=== PATIENT | male | born 1950 | race Caucasian/White ===

== ENCOUNTER 2019-08-30 08:45 | Inpatient (IN) ==
--- NOTE | 2019-08-28 09:15 | Anesthesiology Consultation ---
Date of Service August 28, 2019 Assessment & Plan (1) Encounter for pre-operative examination: COVID assessment: Travel/history reviewed. The patient is low risk. Routine preop COVID testing was performed 08/22/19, and the results are still pending. Cardiology note (per 03/2019 stress test report): Based upon nuclear imaging findings, there is inferior wall ischemia, no change from previous nuclear scan and known occluded RCA (compared to 10/13/16 stress test, patient had cardiac cath 12/2016). "Study shows stability. It is comparable to previous studies... Cardiac clearance for this patient is low to moderate cardiac risk." Chart Review Chart Review: Acceptable Risk for Surgery and Patient NOT seen in Pre Admission Testing Consults Requested none History Surgery Operation Date: 08/30/19 10:50 Proposed Procedures p L3-S1 Decompression and Fusion, Spinal Cord Monitoring - Albaro Csah DO Height/Weight Height: 5 ft 6 in Weight: 103.419 kg Allergies Allergy/AdvReac Type Severity Reaction Status Date / Time No Known Allergies Allergy Verified 08/21/19 11:14 Medications Home Medications Medication Instructions Recorded Confirmed Last Taken aspirin [Aspirin Low Dose] 81 mg PO QPM 05/08/19 08/21/19 Unknown atorvastatin 20 mg PO QAM 05/08/19 08/21/19 Unknown bisoprolol fumarate 5 mg PO QPM 05/08/19 08/21/19 Unknown cholecalciferol (vitamin D3) 25 mcg PO QAM 05/08/19 08/21/19 Unknown [Vitamin D3] clopidogrel 75 mg PO QAM 05/08/19 08/21/19 Unknown gabapentin 300 mg PO TID 05/08/19 08/21/19 Unknown isosorbide mononitrate 30 mg PO QAM 05/08/19 08/21/19 Unknown lisinopril 20 mg PO QAM 05/08/19 08/21/19 Unknown meloxicam 15 mg PO QAM 05/08/19 08/21/19 Unknown metformin 500 mg PO QAM 05/08/19 08/21/19 Unknown omeprazole magnesium [Prilosec OTC] 20 mg PO QAM 05/08/19 08/21/19 Unknown potassium gluconate 595 mg PO QPM 05/08/19 08/21/19 Unknown prednisone 2.5 mg PO QPM 05/08/19 08/21/19 Unknown venlafaxine 150 mg PO QAM 05/08/19 08/21/19 Unknown Testosterone 1 dose INJ DIRECTED 05/16/19 08/21/19 Unknown amlodipine 10 mg PO QAM 05/16/19 08/21/19 Unknown pioglitazone [Actos] 45 mg PO DAILY 05/16/19 08/21/19 Unknown Past Medical History Medical History Anxiety CAD (coronary artery disease) stents x3 (2017)- on plavix Depression Diabetes mellitus, type 2 NIDDM Fibromyalgia GERD (gastroesophageal reflux disease) controlled Hearing deficit Hx of melanoma of skin Hx TIA/stroke w/o resid 2017 Hyperlipidemia Hypertension Low testosterone Obesity Polycythemia Receives occasional phlebotomy/last phlebotomy 6 months ago (follows with hematology/Dr. Hernandez) Rheumatoid arthritis chronic prednisone 2.5mg daily* Spinal stenosis Past Family History Family History Mother Family history of diabetes mellitus Family/Other Family history of diabetes mellitus Past Surgical History Surgical History History of colonoscopy Hx of cardiac catheterization 2017- stents x3 Hx of cholecystectomy Hx of melanoma excision BACK Hx of meniscectomy of right knee Social History Smoking Status: Former smoker Do You Dip or Chew Tobacco: No Smoking End Date: 22 years ago Hx Alcohol Use: Yes alcohol intake frequency: holidays/special occasions only Hx Substance Use: No substance use type: does not use Testing Laboratory Results Laboratory Tests 05/16/19 05/16/19 12:47 12:47 WBC 13.13 H Hgb 15.0 Plt Count 363 PT 10.7 INR 1.0 APTT 25.7 08/16/19 WBC 11.6 Hgb 15.2 platelet 267 08/09/19 Na 140 K 4.1 Cl 103 CO2 28 BUN 13 Cr 0.73 glucose 127 Electrocardiogram Date: 08/25/18 SR @ 68 bpm Chest X-Ray Date: 05/16/19 Cardiac silhouette is upper limits of normal in size. Mild right hemidiaphragmatic elevation. Minimal interstitial coarsening of the lung bases. There is no pneumothorax, pleural effusion or overt pulmonary edema. Degenerative changes of the shoulders and spine. IMPRESSION: No acute process. Echocardiogram Date: 03/18/19 EF 55-60%. Dilated ascending aorta 4.2cm. No RWMA. PASP 15-20mmhg. No significant valvular disease. Indeterminate diastolic dysfunction. Stress Test Date: 03/25/19 Type: nuclear Based upon EKG criteria, this test is negative. Based upon nuclear imaging findings, there is inferior wall ischemia, no change from previous nuclear scan and known occluded RCA (compared to 10/13/16 stress test, patient had cardiac cath 12/2016). "Study shows stability. It is comparable to previous studies... Cardiac clearance for this patient is low to moderate cardiac risk" per report. Cardiac Catheterization Date: 12/29/16 Nonobstructive CAD of the left coronary system. Hemodynamically insignificant IFR of the LAD and second OM branch. Severe disease of the RCA. RCA is a small vessel, less then 2mm in diameter. Medical therapy recommended. Cervical Spine Date: 05/16/19 Decreased mobility with significantly decreased extension. No dynamic subluxation. No evidence of abnormal widening of the predental interval. Degenerative changes at C4-5 and C5-6 with osseous spinal canal narrowing. No radiographic evidence of fracture.
[~2019-08-30 08:45] MED LIST: ACETAMINOPHEN 500 MG TAB PO SCH; CEFAZOLIN 2000MG 2,000 MG/15 ML SYR IV SCH; CeleBREX 200 MG CAP PO SCH; GABAPENTIN 300 MG CAP PO SCH; LR 15ML/HR IV SCH
[2019-08-30] MEDS ORDERED: fentaNYL citrate 100 MCG/2 ML VIAL ONE (09:22)
[2019-08-30] MEDS ORDERED: MIDAZOLAM HCL 1 MG/ML 2ML VIAL ONE (09:22)
--- NOTE | 2019-08-30 10:20 | History & Physical Bridge Note ---
Date of Service August 30, 2019 History & Physical Bridge Note I have examined the patient, reviewed the History & Physical and in the interval since the performance of the History & Physical I have noted the following changes of clinical significance: no changes noted
--- NOTE | 2019-08-30 10:21 | History & Physical Report ---
Date of Service August 30, 2019 Assessment & Plan (1) Neurogenic claudication due to lumbar spinal stenosis: L3-S1 decompression fusion Present on Admission?: Yes History of Present Illness Chief Complaint: Back and bilateral leg pain Primary Care Provider: José Miguel Lee This is a 69-year-old male that presents with worsening back and bilateral leg pain. After failing extensive course of nonoperative care is here for surgical intervention. Allergies Allergy/AdvReac Type Severity Reaction Status Date / Time No Known Allergies Allergy Verified 08/21/19 11:14 Home Medications Home Medications Medication Instructions Recorded Confirmed Type aspirin [Aspirin Low Dose] 81 mg PO QPM 05/08/19 08/30/19 History atorvastatin 20 mg PO QAM 05/08/19 08/30/19 History bisoprolol fumarate 5 mg PO QPM 05/08/19 08/30/19 History cholecalciferol (vitamin D3) 25 mcg PO QAM 05/08/19 08/30/19 History [Vitamin D3] clopidogrel 75 mg PO QAM 05/08/19 08/30/19 History gabapentin 300 mg PO TID 05/08/19 08/30/19 History isosorbide mononitrate 30 mg PO QAM 05/08/19 08/30/19 History lisinopril 20 mg PO QAM 05/08/19 08/21/19 History meloxicam 15 mg PO QAM 05/08/19 08/21/19 History metformin 500 mg PO QAM 05/08/19 08/21/19 History omeprazole magnesium [Prilosec OTC] 20 mg PO QAM 05/08/19 08/21/19 History potassium gluconate 595 mg PO QPM 05/08/19 08/21/19 History prednisone 2.5 mg PO QPM 05/08/19 08/21/19 History venlafaxine 150 mg PO QAM 05/08/19 08/21/19 History Testosterone 1 dose INJ DIRECTED 05/16/19 08/21/19 History amlodipine 10 mg PO QAM 05/16/19 08/30/19 History pioglitazone [Actos] 45 mg PO DAILY 05/16/19 08/21/19 History Past Med/Surg History Medical History Anxiety CAD (coronary artery disease) stents x3 (2016)- on plavix Depression Diabetes mellitus, type 2 NIDDM Fibromyalgia GERD (gastroesophageal reflux disease) controlled Hearing deficit Hx of melanoma of skin Hx TIA/stroke w/o resid 2017 Hyperlipidemia Hypertension Low testosterone Obesity Polycythemia Receives occasional phlebotomy/last phlebotomy 6 months ago (follows with hematology/Dr. Hernandez) Rheumatoid arthritis chronic prednisone 2.5mg daily* Spinal stenosis Surgical History History of colonoscopy Hx of cardiac catheterization 2017- stents x3 Hx of cholecystectomy Hx of melanoma excision BACK Hx of meniscectomy of right knee Family History Mother Family history of diabetes mellitus Family/Other Family history of diabetes mellitus Social History Preferred Language: Thai Communication Ability: Effective [employer] Required: No Beliefs That Will Affect Care: None Current Living Situation: Spouse Feels Safe at Home: Yes Safety Concerns: Feels Safe At This Time Smoking Status: Former smoker Do You Dip or Chew Tobacco: No ; Smoking End Date: 22 years ago ; Second Hand Exposure: No ; Tobacco Cessation Education Requested by Patient: No Hx Alcohol Use: Yes Hx Substance Use: No Physical Exam Physical Exam: Patient is alert and oriented neurologically intact. Heart regular rate and rhythm. Lungs clear to auscultation. Results & Data Vital Signs (Past 12 Hours) Vital Signs Temp Pulse Resp BP Pulse Ox 08/30/19 09:54 36.7 C 55 L 18 150/76 H 95
[2019-08-30] MEDS ORDERED: BUPIVACAINE/EPINEPHRINE 0.25% 1:200,000 30 ML VIAL ONE (10:25)
[2019-08-30] MEDS ORDERED: BACITRACIN INJ 50,000 UNIT VIAL ONE (10:26)
[2019-08-30] MEDS ORDERED: PROPOFOL IV EMULSION 10 MG/ML 20 ML VIAL IV ONE (10:29)
[2019-08-30] MEDS ORDERED: LIDOCAINE HCL 2% 2 ML VIAL/AMP(20MG/ML) INFIL ONE (10:29)
[2019-08-30] MEDS ORDERED: ROCURONIUM BROMIDE 10 MG/ML 5 ML VIAL IV ONE ×4 (10:29→11:38)
[2019-08-30] MEDS ORDERED: ONDANSETRON INJ 2 MG/ML 2 ML VIAL ONE (10:30)
[2019-08-30] MEDS ORDERED: ATROPINE SULFATE 0.1 MG/ML 10ML SYR IV PRN (10:41)
[2019-08-30] MEDS ORDERED: ONDANSETRON INJ 2 MG/ML 2 ML VIAL IV PRN ×2 (10:41→16:01)
[2019-08-30] MEDS ORDERED: ePHEDrine sulfate 50 MG/ML AMP IV PRN (10:41)
[2019-08-30] MEDS ORDERED: PHENYLEPHRINE 100MCG/ML 5ML SYR ONE (11:32)
[2019-08-30] MEDS ORDERED: ePHEDrine sulfate 50 MG/ML SYR ONE (11:32)
[2019-08-30] MEDS ORDERED: PHENYLEPHRINE HCL 10 MG/ML VIAL ONE (13:02)
[2019-08-30] MEDS ORDERED: NEOSTIGMINE METHYLSULFATE 5 MG/5 ML SYR ONE (13:23)
[2019-08-30] MEDS ORDERED: GLYCOPYRROLATE 0.2 MG/ML VIAL ONE ×2 (13:23→13:26)
--- NOTE | 2019-08-30 13:46 | Operative Report ---
Post Operative Report Pre & Post Diagnosis Operation Date: 08/30/19 10:50 Pre-Op Diagnosis: LUMBAR SPINAL STENOSIS W NEUROGENIC CLAUDICATION Spondylolisthesis L4-5 Obesity Post-Op Diagnosis: Same I identified the patient and participated in the time-out.: Yes Procedure Operation Date: 08/30/19 10:50 Actual Procedures #1 lumbar decompression with bilateral medial facetectomies and foraminotomies L3-4, L4-5 and L5-S1. #2 posterior spinal fusion L3-4, L4-5 and L5-S1. #3 placement posterior segmental instrumentation L3-S1. #4 interbody fusion L4-5 p er #5 placement peek cage 13 x 26 mm at L4-5 per #6 placement locally harvested morselized autograft in the posterior lateral gutters. #7 placement infuse collagen sponge, master graft in the posterior gutters and ostial amp interbody space. Surgeon Albaro Cash, DO Truck Driver Instructor None Estimated Blood Loss 150 Findings See Below Patient is 5 foot 6 inches tall weighing over 103 kg with a BMI in excess of 36.8. Patient's body habitus did add significant technical difficulty requiring our deepest retractors and longus instruments in order to perform this procedure. This added at least 50% increase to the operative time. Specimens None Indications This is a 69-year-old male that presents above-mentioned diagnosis after failed extensive course of nonoperative care is here for the above-mentioned procedure. Description of Procedure Patient was met with identified informed consent obtained. Patient was then taken to the operative suite underwent intubation placed in a prone position the Zion table on top of the Jadon frame. All bony prominences well-padded eyes inspected to ensure no external pressure placed upon them. This point the lumbar spine was prepped and draped in a normal sterile fashion. Sharp dissection with the assistance of Bovie cautery was performed down to and exp osing the lamina and transverse processes of L3-L4-L5 and the sacral ala bilaterally. From caudal cephalad fashion complete laminectomy of L5 L4 and L3 was performed including bilateral medial facetectomies and foraminotomies addressing severe spinal stenosis. Pedicle screws were then placed in L3-L4-L5 and S1 levels bilaterally with assistance of fluoroscopy and appropriately sized tad placed. By way of a transforaminal approach and left complete discectomy of L4-5 was performed endplates curetted to subcortical bleeding bone and a 13 x 26 mm peek cage filled with osteo-bone graft tapped in position. The rods and locked in final position bilaterally. The transverse processes of L3-L4-L5 and the sacral ala were then burred to subcortical bleeding bone. Infuse collagen sponge master graft local autograft was then placed in the posterior lateral gutters. 15 round LINDA drain inserted. The incision was then closed with 1 Vicryl the fascia 2-0 Vicryl subcutaneously and 4 Monocryl for final skin closure. Steri-Strip sterile dressings placed. Patient waken taken to PACU stable condition. Please note spinal cord monitoring was utilized that the procedure no changes noted. I attest to the content of the Intraoperative Record and any orders documented therein. Any exceptions are noted below.
[2019-08-30] MEDS: fentaNYL citrate 100 MCG/2 ML VIAL IV PRN ×2 (14:00→14:08)
[2019-08-30] MEDS: HYDROmorphone INJ 2 MG/ML SYR/VIAL IV PRN ×4 (14:16→14:37)
--- NOTE | 2019-08-30 14:20 | Fluoroscopy Report ---
FL lumbar spine 2-3V CLINICAL HISTORY: L3-S1 DECOMPRESSION AND FUSION COMPARISON STUDY: None FLUOROSCOPY TIME: 28 seconds NUMBER OF FLUOROSCOPIC IMAGES: 3 FINDINGS: Image intensifier support for laminectomy and fusion from L3 through S1. IMPRESSION: Image intensifier support for laminectomy and fusion from L3 through S1 ACT 112: Negative or not required by law. The above report was generated using voice recognition software. It may contain grammatical, syntax or spelling errors. Electronically signed by: Mata Cantrell M.D. 08/30/2019 2:19 PM
--- NOTE | 2019-08-30 14:48 | Anesthesiology Progress Note ---
Date of Service August 30, 2019 Anesthesia Post Procedure Vital Signs Vital Signs: Temp Pulse Resp BP BP Pulse Ox 08/30/19 14:30 79 15 129/78 94 08/30/19 14:20 81 15 139/69 95 08/30/19 14:10 78 14 131/61 99 08/30/19 14:00 73 12 151/83 H 97 08/30/19 13:54 36.5 C 72 12 149/85 H 100 08/30/19 09:54 36.7 C 55 L 18 150/76 H 95 Pain Intensity Back: Pain Intensity: 6 Transfer of Care Handoff Completed per policy Notes Mental Status: alert / awake / arousable and participated in evaluation Patient Amnestic to Procedure: Yes Nausea / Vomiting: adequately controlled Pain: adequately controlled Airway Patency, RR, SpO2: stable & adequate BP & HR: stable & adequate Hydration State: stable & adequate Anesthetic Complications: no major complications apparent and Pt Satisfied with anesthetic care
[2019-08-30] MEDS ORDERED: ONDANSETRON 4 MG OD TAB PO PRN (16:01)
[2019-08-30] MEDS ORDERED: METOCLOPRAMIDE HCL INJ 5 MG/ML 2 ML VIAL IV PRN (16:01)
[2019-08-30] MEDS ORDERED: NALOXONE HCL 0.4 MG/1 ML VIAL/CARP IV PRN (16:01)
[2019-08-30] MEDS ORDERED: FAMOTIDINE 20 MG TAB PO PRN (16:01)
[2019-08-30] MEDS ORDERED: SOD PHOSPHATE/SOD BIPHOSPHATE ENEMA 132 ML BTL PR PRN (16:01)
[2019-08-30] MEDS ORDERED: bisacodyL 10 MG SUPP PR PRN (16:01)
[2019-08-30] MEDS ORDERED: ACETAMINOPHEN 1,000 MG/100 ML VIAL IV PRN (16:01)
[2019-08-30] MEDS ORDERED: ALUMINUM/MAGNESIUM SUSP 30 ML UDC PO PRN (16:01)
[2019-08-30] MEDS ORDERED: HYDROmorphone INJ 1 MG/ML SYRINGE IV PRN (16:01)
[2019-08-30] MEDS ORDERED: MAGNESIUM HYDROXIDE SUSP 30 ML UDC PO PRN (16:01)
[2019-08-30] MEDS ORDERED: PROMETHAZINE HCL 12.5 MG in SODIUM CHLORIDE 0.9% 50 ML IV PRN (16:01)
[2019-08-30] MEDS ORDERED: DO NOT ADMINISTER PNEUMOCOCCAL VACCINE PRN (16:01)
[2019-08-30] MEDS ORDERED: DO NOT ADMINISTER FLU VACCINE PRN (16:01)
[2019-08-30] MEDS ORDERED: LORazepam 0.5 MG/1 ML VIAL IV PRN (16:01)
[2019-08-30] MEDS ORDERED: LORazepam 0.5 MG TAB PO PRN (16:01)
[2019-08-30] MEDS ORDERED: PHARMACY GLYCEMIC MGMT CONSULT PRN (16:19)
[2019-08-30] MEDS ORDERED: DEXTROSE 50% 50 ML SYRINGE IV PRN (16:30)
[2019-08-30] MEDS ORDERED: GLUCAGON FOR INJ 1 MG VIAL IM PRN (16:30)
[2019-08-30] MEDS ORDERED: GLUCOSE 40% GEL 15 GM TUBE PO PRN (16:30)
[2019-08-30] MEDS ORDERED: GLUCOSE 10 TABS/TUBE PO PRN (16:30)
[2019-08-30] MEDS ORDERED: CARBOHYDRATES FOR HYPOGLYCEMIA PO PRN (16:30)
[2019-08-30] MEDS ORDERED: GABAPENTIN 300 MG CAP PO SCH (17:00)
[2019-08-30] MEDS: HYDROmorphone INJ 0.5 MG/0.5 ML SYR IV PRN ×2 (17:02→20:10)
[2019-08-30] MEDS: SODIUM CHLORIDE 0.9% 1000ML 1,000 ML IV SCH ×2 (17:03→23:50)
[2019-08-30] MEDS ORDERED: LANTUS PER UNIT CHARGE SQ ONE ×3 (17:15→21:00)
--- NOTE | 2019-08-30 17:38 | Hospitalist Consultation ---
Date of Consultation August 30, 2019 Assessment & Plan (1) Post-operative state: (2) Neurogenic claudication due to lumbar spinal stenosis: (3) Spinal stenosis: POD#0 Activity and wound care orders as per ortho Pain control with bowel regimen PT/OT Monitor H/H for acute blood loss anemia and transfuse blood products PRN Continue Gabapentin (4) Diabetes mellitus, type 2: Hold home meds. Check A1C in AM Insulin while inpatient- pharmacy consulted per Ortho (5) Depression: (6) Anxiety: Continue venlafaxine (7) Hypertension: BP currently controlled Continue to monitor. Continue home meds. Medications clarified with his home pharmacy and pharmacy on site here (8) Hyperlipidemia: Patient no longer on atorvastatin due to myalgias in the past (9) Hx TIA/stroke w/o resid: (10) CAD (coronary artery disease): No chest pain currently Plavix held per ortho. (11) GERD (gastroesophageal reflux disease): Continue omeprazole (12) Rheumatoid arthritis: Methylprednisolone being held as well (13) Polycythemia: CBC being checked with AM labs- note hx of polycythemia (14) DVT prophylaxis: Per Ortho Thank you for this consultation. We will follow the patient with you during their hospital stay. You can reach a [facility] via pager @ [phone]. Supervising Physician Co-Signing Physician Notes Attending addendum: 69-year-old male with chronic low back pain secondary to spinal stenosis at lumbar region, underwent elective spinal decompression surgery today Says improvement of bilateral radiating pain on lower extremities after surgery No complaint of cough no fever or chills, Vitals stable We will continue to follow him during his hospital stay Ellyn Henson MD History of Present Illness Attending Physician: Albaro Cash DO History of Present Illness Patient is a 69 yo male currently admitted to the hospital for concern of worsening back and bilateral leg pain. He was admitted by Ortho Spine for surgical intervention. He underwent lumbar decompression and spinal fusion by Dr. Cash today. Estimated blood loss was 150. Medical history includes anxiety, depression, CAD with history of stenting x 3 on Plavix, Type 2 DM, GERD, Hx TIA, HTN, hyperlipidemia, obesity, RA, polycythemia, and spinal stenosis. He overall is doing well after surgery. He has pain in his lower back, and he has continued pain down his B/L legs L>R. The pain in his legs is similar to his chronic pain- no worse than usual. He has no N/V. No SOB, chest pain. Allergies Allergy/AdvReac Type Severity Reaction Status Date / Time No Known Allergies Allergy Verified 08/21/19 11:14 Home Medications Home Medications Medication Instructions Recorded Confirmed Type aspirin [Aspirin Low Dose] 81 mg PO QPM 05/08/19 08/30/19 History atorvastatin 20 mg PO QAM 05/08/19 08/30/19 History bisoprolol fumarate 7.5 mg PO QPM 05/08/19 08/30/19 History cholecalciferol (vitamin D3) 25 mcg PO QAM 05/08/19 08/30/19 History [Vitamin D3] clopidogrel 75 mg PO QAM 05/08/19 08/30/19 History isosorbide mononitrate 30 mg PO QAM 05/08/19 08/30/19 History lisinopril 20 mg PO QAM 05/08/19 08/30/19 History metformin 1,000 mg PO BID 05/08/19 08/30/19 History omeprazole magnesium [Prilosec OTC] 20 mg PO QAM 05/08/19 08/30/19 History potassium gluconate 595 mg PO QPM 05/08/19 08/30/19 History venlafaxine 150 mg PO QAM 05/08/19 08/30/19 History Testosterone 1 dose INJ DIRECTED 05/16/19 08/30/19 History amlodipine 10 mg PO QAM 05/16/19 08/30/19 History pioglitazone [Actos] 45 mg PO DAILY 05/16/19 08/30/19 History empagliflozin [Jardiance] 25 mg PO DAILY 08/30/19 08/30/19 History gabapentin 1,200 mg PO TID 08/30/19 08/30/19 History methylprednisolone 4 mg PO DAILY 08/30/19 08/30/19 History Patient History Medical History Anxiety CAD (coronary artery disease) stents x3 (2016)- on plavix Depression Diabetes mellitus, type 2 NIDDM Fibromyalgia GERD (gastroesophageal reflux disease) controlled Hearing deficit Hx of melanoma of skin Hx TIA/stroke w/o resid 2017 Hyperlipidemia Hypertension Low testosterone Obesity Polycythemia Receives occasional phlebotomy/last phlebotomy 6 months ago (follows with hematology/Dr. Hernandez) Rheumatoid arthritis chronic prednisone 2.5mg daily* Spinal stenosis Surgical History History of colonoscopy Hx of cardiac catheterization 2017- stents x3 Hx of cholecystectomy Hx of melanoma excision BACK Hx of meniscectomy of right knee Family History Mother Family history of diabetes mellitus Family/Other Family history of diabetes mellitus Social History Preferred Language: [place] Communication Ability: Effective Business Computers Teacher Required: No Beliefs That Will Affect Care: None Current Living Situation: Spouse Feels Safe at Home: Yes Safety Concerns: Feels Safe At This Time Smoking Status: Former smoker Do You Dip or Chew Tobacco: No ; Smoking End Date: 22 years ago ; Second Hand Exposure: No ; Tobacco Cessation Education Requested by Patient: No Hx Alcohol Use: Yes Hx Substance Use: No Review of Systems Review of Systems: All systems reviewed & are unremarkable except as noted in HPI & below Physical Exam Constitutional: WD/WN, vitals as above Eyes: PERRL, conjunctivae normal, anicteric sclerae ENMT: external ear and nose normal, oropharynx normal Neck: trachea midline, no thyromegaly Respiratory: normal respiratory effort, lungs clear to auscultation Cardiovascular: RRR, no murmur, no edema Gastrointestinal (Abdomen): normal bowel sounds, soft, nontender, no hepatosplenomegaly Musculoskeletal: Head/Neck/Chest: normocephalic, head atraumatic and neck supple Extremities: extremities normal to inspection Neurologic: CN's II-XI intact bilaterally and moves all extremities Speech / Cognition: normal speech Psychiatric: A+Ox3, euthymic affect Results & Data Results & Data ([facility]) Vital Signs (Past 12 Hours) Vital Signs Temp Pulse Resp BP BP Pulse Ox 08/30/19 16:27 36.5 C 87 18 132/71 95 08/30/19 15:30 82 13 135/69 92 08/30/19 15:15 76 12 129/68 92 08/30/19 15:00 84 18 133/71 94 08/30/19 14:50 36.3 C L 89 20 139/74 92 08/30/19 14:40 89 15 129/75 93 08/30/19 14:30 79 15 129/78 94 08/30/19 14:20 81 15 139/69 95 08/30/19 14:10 78 14 131/61 99 08/30/19 14:00 73 12 151/83 H 97 08/30/19 13:54 36.5 C 72 12 149/85 H 100 08/30/19 09:54 36.7 C 55 L 18 150/76 H 95 Laboratory Results Laboratory Results - last 24 hr 08/30/19 08/30/19 08/30/19 09:20 09:52 13:57 POC Glucose 121 H 182 H Blood Type A Positive Antibody Screen NEGATIVE Crossmatch See Detail 08/30/19 16:10 POC Glucose 123 H Blood Type Antibody Screen Crossmatch
[2019-08-30] MEDS: OXYCODONE HCL IR 5 MG TAB (IMMEDIATE RELEASE) PO PRN ×2 (18:23→22:29)
[2019-08-30] MEDS ORDERED: COUGH DROP (SUGAR FREE) LOZ 24 LOZ/1 BOX BUCCAL ONE (18:25)
[2019-08-30] MEDS: CEFAZOLIN 2000MG 2,000 MG/15 ML SYR IV SCH (18:27)
[2019-08-30] MEDS: INSULIN ASPART 100 UNITS/ML 3 ML PEN SC SCH ×2 (18:31→22:16)
[2019-08-30] MEDS ORDERED: NON-FORMULARY MEDICATION (Potassium Gluconate 595 MG) PO SCH (21:00)
[2019-08-30] MEDS ORDERED: BISOPROLOL FUMARATE 5 MG TAB PO SCH (21:00)
[2019-08-30] MEDS: ASPIRIN 81 MG ECTAB PO SCH (21:01)
[2019-08-30] MEDS: DOCUSATE SODIUM/SENNA 50/8.6MG TAB PO SCH (21:01)
[2019-08-30] MEDS: GABAPENTIN 600 MG TAB PO SCH (21:02)
[2019-08-30] MEDS: BISOPROLOL FUMARATE 5 MG TAB PO SCH (21:03)
[2019-08-31] MEDS: CEFAZOLIN 2000MG 2,000 MG/15 ML SYR IV SCH (03:07)
[2019-08-31] MEDS: OXYCODONE HCL IR 5 MG TAB (IMMEDIATE RELEASE) PO PRN ×4 (03:07→19:55)
[2019-08-31] MEDS: ACETAMINOPHEN 500 MG TAB PO PRN ×2 (03:08→13:15)
[2019-08-31] MEDS: POLYETHYLENE (MIRALAX) 17 GM PACK PO SCH ×3 (05:52→17:45)
[2019-08-31] MEDS: SODIUM CHLORIDE 0.9% 1000ML 1,000 ML IV SCH ×2 (05:53→05:56)
[2019-08-31 07:17] LABS: Basophils # (auto) 0.04 K/uL (0-0.2); Basophils % (auto) 0.3 %; Eosinophils # (auto) 0.16 K/uL (0-0.5); Eosinophils % (auto) 1.1 %; Hematocrit (blood only) 44.5 % (42-52); Hemoglobin 13.6 g/dL (14.0-18.0); Immature Granulocytes # (auto) 0.07 K/uL (0.00-0.02); Immature Granulocytes % (auto) 0.5 %; Lymphocytes # (auto) 2.07 K/uL (1.2-3.4); Lymphocytes % (auto) 13.9 %; Mean Corpuscular Hemoglobin 27.2 pg (25-34); Mean Corpuscular Hgb Conc 30.6 g/dL (32-36); Mean Platelet Volume 8.9 fL (7.4-10.4); Monocytes % (auto) 5.4 %; Neutrophils # (auto) 11.75 K/uL (1.4-6.5); Neutrophils % (auto) 78.8 %; Platelet Count 225 K/uL (130-400); RDW Coefficient of Variation 16.3 % (11.5-14.5); RDW Standard Deviation 53.6 fL (36.4-46.3); White Blood Count 14.89 K/uL (4.8-10.8)
[2019-08-31 07:41] LABS: Estimated Average Glucose 171 mg/dl; Hemoglobin A1C 7.6 % (4.5-5.6)
[2019-08-31 07:43] LABS: BUN Creatinine Ratio 11.2 (10-20); Calcium 8.3 mg/dl (8.5-10.1); Est GFR (African American) 107.3; Est GFR (Non-African American) 92.6; Potassium 3.9 mmol/L (3.5-5.1)
[2019-08-31] MEDS ORDERED: INSULIN HUMAN NPH SC SCH (09:00)
[2019-08-31] MEDS ORDERED: PIOGLITAZONE 45 MG PO SCH (09:00)
[2019-08-31] MEDS ORDERED: NovoLIN-N (NPH) PER UNIT CHARGE SQ SCH (09:00)
[2019-08-31] MEDS ORDERED: methylPREDNISolone 4 MG TAB PO SCH (09:00)
--- NOTE | 2019-08-31 09:08 | Hospitalist Progress Note ---
Date of Service August 31, 2019 Assessment & Plan (1) Post-operative state: (2) Neurogenic claudication due to lumbar spinal stenosis: (3) Spinal stenosis: POD#1 Activity and wound care orders as per ortho Pain control with bowel regimen PT/OT Monitor H/H for acute blood loss anemia and transfuse blood products PRN Continue Gabapentin (4) Diabetes mellitus, type 2: Hold home meds. Check A1C in AM Insulin while inpatient- pharmacy consulted per Ortho (5) Depression: (6) Anxiety: Continue venlafaxine (7) Hypertension: BP currently controlled Continue to monitor. Continue home meds. Medications clarified with his home pharmacy and pharmacy on site here (8) Hyperlipidemia: Patient no longer on atorvastatin due to myalgias in the past (9) Hx TIA/stroke w/o resid: (10) CAD (coronary artery disease): No chest pain currently Plavix held per ortho. (11) GERD (gastroesophageal reflux disease): Continue omeprazole (12) Rheumatoid arthritis: Methylprednisolone being held as well (13) Polycythemia: CBC being checked with AM labs- note hx of polycythemia (14) DVT prophylaxis: Resume Post Op Care per Surgery Protocol Incentive Spirometry 10x per Hour Resume Relative Home Meds Where Appropriate PT/OT with appropriate fall precautions Transition from IV to PO Pain control DVT Prophylaxis Per Surgery Protocol Monitor Daily Labs ROS-No Headache, No Visual Changes, No Nausea, No Vomiting, No Fever, No Chills, No Neck Pain or Stiffness, No Chest Pain, No Palpitations, No SOB, No EVANS, No Cough, No Sputum, No Wheezing, No Abdominal Pain, No Diarrhea, No Hematemesis, No Hemoptysis, No Unexpected Weight Loss, No Flank pain, No Melena, No Hematochezia, No Frequency, No Urgency, No Burning, No Hematuria, No Rashes, No Diaphoresis. Appetite is Normal, Sore Back Physical Exam Gen-AAO x 3, NAD, Afebrile Head-NCAT, EOMI, PERRLA, Anicteric Sclera, No Posterior Pharyngeal Erythema Neck-Supple, No JVD, No Thyromegaly, No Masses, No LAD, No Bruits Lungs-Clear to Auscultation Bilaterally, No Rales, No Rhonchi, No Wheezing, No Crepitus Chest-No S4, +S1, +S2, No S3, No Murmurs, No Rubs, No Gallops, No Ectopy Abdomen-Soft, Bowel Sounds Present, Non Tender, Non Distended, No Hepatomegaly, No Splenomegaly, No Palpable Masses, No Rebound, No Rigidity, No Guarding Musculoskeletal-Full Range of Motion Bilaterally, No CVAT Extremities-No Cyanosis, No Clubbing, No Edema Nuero-Cranial Nerves II-XII grossly intact, Motor WNL, DTRs WNL, Strength WNL, Non Focal Psych-Normal Mood Admission and Anticipated Discharge Date Admission Date: August 30, 2019 Anticipated date of discharge: 09/01/19 Results & Data Results & Data ([facility]) Vital Signs (Past 12 Hours) Vital Signs Temp Pulse Resp BP Pulse Ox 08/31/19 07:51 37.1 C 88 16 109/64 94 08/31/19 05:49 37.2 C 08/31/19 04:52 37.8 C H 08/31/19 04:18 38.1 C H 08/31/19 02:47 38.0 C H 101 H 16 136/74 93 08/30/19 23:17 36.8 C 78 18 126/45 L 94
[2019-08-31] MEDS: ATORVASTATIN 20 MG TAB PO SCH (09:20)
[2019-08-31] MEDS: DEXAMETHASONE SOD PHOSPHATE 8 MG in SYRINGE 0 ML IV SCH (09:20)
[2019-08-31] MEDS: GABAPENTIN 600 MG TAB PO SCH ×3 (09:21→20:42)
[2019-08-31] MEDS: CHOLECALCIFEROL 1,000 UNITS 25 MCG TAB PO SCH (09:21)
[2019-08-31] MEDS: VENLAFAXINE HCL XR 150 MG CAPXR PO SCH (09:21)
[2019-08-31] MEDS: lisinopriL 20 MG TAB PO SCH (09:22)
[2019-08-31] MEDS: ISOSORBIDE MONO EXTENDED REL 30 MG TABCR PO SCH (09:22)
[2019-08-31] MEDS: AMLODIPINE BESYLATE 5 MG TAB PO SCH (09:22)
[2019-08-31] MEDS: PANTOprazole 40 MG TAB PO SCH (09:23)
[2019-08-31] MEDS: INSULIN ASPART 100 UNITS/ML 3 ML PEN SC SCH ×4 (09:26→20:48)
--- NOTE | 2019-08-31 09:57 | Orthopedic Progress Note ---
Date of Service August 31, 2019 Assessment & Plan (1) Neurogenic claudication due to lumbar spinal stenosis: This time we will continue physical therapy monitor his LINDA output hopefully discharge home in the next few days. Admission and Anticipated Discharge Date Admission Date: August 30, 2019 Anticipated date of discharge: 09/01/19 Subjective Back pain controlled leg symptoms markedly improved. Physical Exam Physical Exam: Patient is in the chair at the bedside. Is good strength testing. Appears comfortable. Results & Data ([facility]) Vital Signs (Past 12 Hours) Vital Signs Temp Pulse Resp BP Pulse Ox 08/31/19 07:51 37.1 C 88 16 109/64 94 08/31/19 05:49 37.2 C 08/31/19 04:52 37.8 C H 08/31/19 04:18 38.1 C H 08/31/19 02:47 38.0 C H 101 H 16 136/74 93 08/30/19 23:17 36.8 C 78 18 126/45 L 94
[2019-08-31] MEDS: HYDROmorphone INJ 0.5 MG/0.5 ML SYR IV PRN (10:45)
[2019-08-31] MEDS: TRAMADOL HCL 50 MG TABLET PO PRN (13:14)
--- NOTE | 2019-08-31 13:26 | Pharmacy Report ---
Pharmacy Glycemic Short Note 2 - Date of Service August 31, 2019 - Glycemic Short BSG Results (Last 24 hours): 08/30/19 08/30/19 08/30/19 13:57 16:10 20:51 Glucose POC Glucose 182 H 123 H 123 H 08/31/19 08/31/19 08/31/19 07:00 08:25 11:59 Glucose 122 H POC Glucose 114 H 191 H OUTPATIENT ANTIDIABETIC REGIMEN: * metformin * Actos * also takes prednisone 2.5 mg PO daily * A1c = 7.6% on 08/31/19 ASSESSMENT: * 69yo T2DM male with adequate outpatient control per A1c * Pt is maintained on oral antidiabetic agents as an outpatient * Oral agents are not recommended for inpatient use d/t drug interactions, changing PO intake, and difficulty titrating for acute hyper/hypoglycemia. ADA recommends re-initiating outpatient oral agents 1-2 days prior to discharge if/when appropriate if they were held on admission. * Will hold oral agents for admission and utilize SQ basal bolus insulin regimen which is the recommended regimen for inpatient glycemic control. * Will initiate weight based insulin dosing for steroid induced hyperglycemia and titrate based on BSG trends. * Pt is ordered dexamethasone 8mg IV daily which will lead to significant hyperglycemia. Will counteract hyperglycemia with weight based dosing of NPH insulin given at the same time as DXM PLAN FOR INPATIENT GLYCEMIC CONTROL: * Hold outpatient oral diabetes medications * Basal insulin * N/A none needed * Steroid induced hyperglycemia * NPH 20 units (0.2 units/kg) SQ daily with Dexamethasone * Bolus insulin * NovoLog per scale ACHS or Q6hrs while NPO * Goal Range: Low 110 mg/dL - High 140 mg/dL * Correction Factor: 20 mg/dL/unit * Nutritional / Prandial insulin per carb ratio of 1 unit per 7 grams CHO consumed PLAN FOR DISCHARGE: * No changes needed to outpatient regimen as A1c is in goal range for age/comorbidities
[2019-08-31] MEDS: DOCUSATE SODIUM/SENNA 50/8.6MG TAB PO SCH (17:46)
[2019-08-31] MEDS: ASPIRIN 81 MG ECTAB PO SCH (20:43)
[2019-08-31] MEDS: BISOPROLOL FUMARATE 5 MG TAB PO SCH (20:43)
[2019-09-01] MEDS: POLYETHYLENE (MIRALAX) 17 GM PACK PO SCH ×3 (00:26→12:01)
[2019-09-01] MEDS: OXYCODONE HCL IR 5 MG TAB (IMMEDIATE RELEASE) PO PRN ×5 (05:30→23:30)
[2019-09-01 05:53] LABS: Hematocrit (blood only) 41.3 % (42-52); Hemoglobin 13.2 g/dL (14.0-18.0); Mean Corpuscular Hemoglobin 27.7 pg (25-34); Mean Corpuscular Volume 86.6 fL (80-100); Mean Platelet Volume 9.5 fL (7.4-10.4); Platelet Count 223 K/uL (130-400); RDW Standard Deviation 51.2 fL (36.4-46.3); Red Blood Count 4.77 M/uL (4.7-6.1); White Blood Count 15.24 K/uL (4.8-10.8)
[2019-09-01 06:32] LABS: BUN Creatinine Ratio 22.7 (10-20); Creatinine Clr Calc Pharmacy 91.3 ml/min; Est GFR (African American) 102.5; Est GFR (Non-African American) 88.5; Potassium 4.6 mmol/L (3.5-5.1)
[2019-09-01 06:33] LABS: Calcium 8.8 mg/dl (8.5-10.1)
[2019-09-01] MEDS: HYDROmorphone INJ 0.5 MG/0.5 ML SYR IV PRN ×2 (06:44→20:51)
[2019-09-01] MEDS: DEXAMETHASONE SOD PHOSPHATE 8 MG in SYRINGE 0 ML IV SCH (08:48)
[2019-09-01] MEDS: AMLODIPINE BESYLATE 5 MG TAB PO SCH (08:48)
[2019-09-01] MEDS: CHOLECALCIFEROL 1,000 UNITS 25 MCG TAB PO SCH (08:49)
[2019-09-01] MEDS: lisinopriL 20 MG TAB PO SCH (08:49)
[2019-09-01] MEDS: VENLAFAXINE HCL XR 150 MG CAPXR PO SCH (08:49)
[2019-09-01] MEDS: ISOSORBIDE MONO EXTENDED REL 30 MG TABCR PO SCH (08:49)
[2019-09-01] MEDS: PANTOprazole 40 MG TAB PO SCH (08:50)
[2019-09-01] MEDS: GABAPENTIN 600 MG TAB PO SCH ×3 (08:50→20:03)
[2019-09-01] MEDS: ATORVASTATIN 20 MG TAB PO SCH (08:50)
[2019-09-01] MEDS: INSULIN ASPART 100 UNITS/ML 3 ML PEN SC SCH ×4 (08:54→20:52)
[2019-09-01] MEDS: ACETAMINOPHEN 500 MG TAB PO PRN (08:58)
[2019-09-01] MEDS: TRAMADOL HCL 50 MG TABLET PO PRN ×2 (08:58→14:12)
[2019-09-01] MEDS ORDERED: NovoLIN-N (NPH) PER UNIT CHARGE SQ SCH (09:00)
[2019-09-01] MEDS ORDERED: DEXAMETHASONE SOD PHOSPHATE 8 MG in SYRINGE 0 ML IV SCH (09:00)
--- NOTE | 2019-09-01 09:15 | Orthopedic Progress Note ---
Date of Service September 01, 2019 Assessment & Plan (1) Neurogenic claudication due to lumbar spinal stenosis: This time we will continue physical therapy monitor his LINDA output anticipate discharge home tomorrow. Present on Admission?: Yes Admission and Anticipated Discharge Date Admission Date: August 30, 2019 Anticipated date of discharge: 09/01/19 Subjective Patient complaining mostly of back pain. Leg pain improved. Physical Exam Physical Exam: Patient is in a chair at the bedside. Is good strength testing. Results & Data ([facility]) Vital Signs (Past 12 Hours) Vital Signs Temp Pulse Resp BP Pulse Ox 09/01/19 06:23 36.7 C 75 16 121/69 93 09/01/19 00:20 36.4 C L 70 16 117/64 91
--- NOTE | 2019-09-01 09:28 | Hospitalist Progress Note ---
Date of Service September 01, 2019 Assessment & Plan (1) Post-operative state: (2) Neurogenic claudication due to lumbar spinal stenosis: (3) Spinal stenosis: POD#2 Activity and wound care orders as per ortho Pain control with bowel regimen PT/OT Monitor H/H for acute blood loss anemia and transfuse blood products PRN Continue Gabapentin (4) Diabetes mellitus, type 2: Hold home meds. Check A1C in AM Insulin while inpatient- pharmacy consulted per Ortho Lantus 15 U added daily (5) Depression: (6) Anxiety: Continue venlafaxine (7) Hypertension: BP currently controlled Continue to monitor. Continue home meds. Medications clarified with his home pharmacy and pharmacy on site here (8) Hyperlipidemia: Patient no longer on atorvastatin due to myalgias in the past (9) Hx TIA/stroke w/o resid: (10) CAD (coronary artery disease): No chest pain currently Plavix held per ortho. (11) GERD (gastroesophageal reflux disease): Continue omeprazole (12) Rheumatoid arthritis: Methylprednisolone being held as well (13) Polycythemia: CBC being checked with AM labs- note hx of polycythemia (14) DVT prophylaxis: Acute Post op Blood Loss Anemia-Hb stable Resume Post Op Care per Surgery Protocol Incentive Spirometry 10x per Hour Resume Relative Home Meds Where Appropriate PT/OT with appropriate fall precautions Transition to PO Pain control DVT Prophylaxis Per Surgery Protocol Monitor Daily Labs ROS-No Headache, No Visual Changes, No Nausea, No Vomiting, No Fever, No Chills, No Neck Pain or Stiffness, No Chest Pain, No Palpitations, No SOB, No EVANS, No Cough, No Sputum, No Wheezing, No Abdominal Pain, No Diarrhea, No Hematemesis, No Hemoptysis, No Unexpected Weight Loss, No Flank pain, No Melena, No Hematochezia, No Frequency, No Urgency, No Burning, No Hematuria, No Rashes, No Diaphoresis. Appetite is Normal, Sore Back Physical Exam Gen-AAO x 3, NAD, Afebrile Head-NCAT, EOMI, PERRLA, Anicteric Sclera, No Posterior Pharyngeal Erythema Neck-Supple, No JVD, No Thyromegaly, No Masses, No LAD, No Bruits Lungs-Clear to Auscultation Bilaterally, No Rales, No Rhonchi, No Wheezing, No Crepitus Chest-No S4, +S1, +S2, No S3, No Murmurs, No Rubs, No Gallops, No Ectopy Abdomen-Soft, Bowel Sounds Present, Non Tender, Non Distended, No Hepatomegaly, No Splenomegaly, No Palpable Masses, No Rebound, No Rigidity, No Guarding Musculoskeletal-Full Range of Motion Bilaterally, No CVAT Extremities-No Cyanosis, No Clubbing, No Edema Nuero-Cranial Nerves II-XII grossly intact, Motor WNL, DTRs WNL, Strength WNL, Non Focal Psych-Normal Mood Admission and Anticipated Discharge Date Admission Date: August 30, 2019 Anticipated date of discharge: 09/01/19 Results & Data Results & Data ([facility]) Vital Signs (Past 12 Hours) Vital Signs Temp Pulse Resp BP Pulse Ox 09/01/19 06:23 36.7 C 75 16 121/69 93 09/01/19 00:20 36.4 C L 70 16 117/64 91
[2019-09-01] MEDS ORDERED: LANTUS PER UNIT CHARGE SQ SCH (09:30)
--- NOTE | 2019-09-01 10:20 | Pharmacy Report ---
Pharmacy Glycemic Short Note 2 - Date of Service September 01, 2019 - Glycemic Short BSG Results (Last 24 hours): 08/31/19 08/31/19 08/31/19 11:59 16:18 20:46 Glucose POC Glucose 191 H 216 H 208 H 09/01/19 09/01/19 05:00 08:18 Glucose 162 H POC Glucose 158 H OUTPATIENT ANTIDIABETIC REGIMEN: * metformin * Actos * also takes prednisone 2.5 mg PO daily * A1c = 7.6% on 08/31/19 ASSESSMENT: * 69yo T2DM male with adequate outpatient control per A1c * Pt is maintained on oral antidiabetic agents as an outpatient- oral agents on hold and using NPH + NovoLog * Pt is ordered dexamethasone 8mg IV daily which will lead to significant hyperglycemia. Will counteract hyperglycemia with weight based dosing of NPH insulin given at the same time as DXM * Pt has received 48 units of insulin over the past 24hrs * 20 units of NPH * 28 units of NovoLog * BSGs 114-208 mg/dl * Goal is to maintain BSGs <200 mg/dl (ideally <150 mg/dl) to prevent post op complications * Insulin regimen needs increased- pt received 11 units of correctional insulin. Will add this to NPH dose and continue to titrate based on BSG trends PLAN FOR INPATIENT GLYCEMIC CONTROL: * Hold outpatient oral diabetes medications * Basal insulin * N/A none needed * Steroid induced hyperglycemia * NPH 30 units (0.3 units/kg) SQ daily with Dexamethasone * Bolus insulin * NovoLog per scale ACHS or Q6hrs while NPO * Goal Range: Low 110 mg/dL - High 140 mg/dL * Correction Factor: 20 mg/dL/unit * Nutritional / Prandial insulin per carb ratio of 1 unit per 7 grams CHO consumed PLAN FOR DISCHARGE: * No changes needed to outpatient regimen as A1c is in goal range for age/comorbidities
[2019-09-01] MEDS: BISOPROLOL FUMARATE 5 MG TAB PO SCH (20:02)
[2019-09-01] MEDS: DOCUSATE SODIUM/SENNA 50/8.6MG TAB PO SCH (20:03)
[2019-09-01] MEDS: ASPIRIN 81 MG ECTAB PO SCH (20:03)
[2019-09-02] MEDS: OXYCODONE HCL IR 5 MG TAB (IMMEDIATE RELEASE) PO PRN ×2 (05:47→09:44)
[2019-09-02 06:09] LABS: Hematocrit (blood only) 44.9 % (42-52); Hemoglobin 13.3 g/dL (14.0-18.0); Mean Corpuscular Hemoglobin 26.2 pg (25-34); Mean Corpuscular Hgb Conc 29.6 g/dL (32-36); Mean Corpuscular Volume 88.6 fL (80-100); Mean Platelet Volume 9.9 fL (7.4-10.4); Platelet Count 284 K/uL (130-400); RDW Coefficient of Variation 15.8 % (11.5-14.5); RDW Standard Deviation 50.7 fL (36.4-46.3); Red Blood Count 5.07 M/uL (4.7-6.1); White Blood Count 14.57 K/uL (4.8-10.8)
[2019-09-02 06:48] LABS: BUN Creatinine Ratio 23.1 (10-20); Calcium 9.4 mg/dl (8.5-10.1); Creatinine Clr Calc Pharmacy 87.3 ml/min; Est GFR (African American) 100.6; Est GFR (Non-African American) 86.8; Potassium 4.7 mmol/L (3.5-5.1)
[2019-09-02] MEDS: DEXAMETHASONE SOD PHOSPHATE 8 MG in SYRINGE 0 ML IV SCH (07:44)
[2019-09-02] MEDS: GABAPENTIN 600 MG TAB PO SCH (07:44)
[2019-09-02] MEDS: lisinopriL 20 MG TAB PO SCH (07:45)
[2019-09-02] MEDS: ATORVASTATIN 20 MG TAB PO SCH (07:45)
[2019-09-02] MEDS: AMLODIPINE BESYLATE 5 MG TAB PO SCH (07:45)
[2019-09-02] MEDS: ISOSORBIDE MONO EXTENDED REL 30 MG TABCR PO SCH (07:45)
[2019-09-02] MEDS: VENLAFAXINE HCL XR 150 MG CAPXR PO SCH (07:45)
[2019-09-02] MEDS: CHOLECALCIFEROL 1,000 UNITS 25 MCG TAB PO SCH (07:45)
[2019-09-02] MEDS: PANTOprazole 40 MG TAB PO SCH (07:45)
[2019-09-02] MEDS: INSULIN ASPART 100 UNITS/ML 3 ML PEN SC SCH ×2 (08:34→12:36)
[2019-09-02] MEDS ORDERED: NovoLIN-N (NPH) PER UNIT CHARGE SQ SCH (09:00)
--- NOTE | 2019-09-02 09:09 | Hospitalist Progress Note ---
Date of Service September 02, 2019 Assessment & Plan (1) Post-operative state: (2) Neurogenic claudication due to lumbar spinal stenosis: (3) Spinal stenosis: POD#3 Activity and wound care orders as per ortho Pain control with bowel regimen PT/OT Monitor H/H for acute blood loss anemia and transfuse blood products PRN Continue Gabapentin DC home when ok leah Cash (4) Diabetes mellitus, type 2: DC on home regimen (5) Depression: (6) Anxiety: Continue venlafaxine (7) Hypertension: BP currently controlled Continue to monitor. Continue home meds. Medications clarified with his home pharmacy and pharmacy on site here (8) Hyperlipidemia: Patient no longer on atorvastatin due to myalgias in the past (9) Hx TIA/stroke w/o resid: (10) CAD (coronary artery disease): No chest pain currently Plavix held per ortho. (11) GERD (gastroesophageal reflux disease): Continue omeprazole (12) Rheumatoid arthritis: Methylprednisolone being held as well (13) Polycythemia: CBC being checked with AM labs- note hx of polycythemia (14) DVT prophylaxis: Acute Post op Blood Loss Anemia-Hb stable Resume Post Op Care per Surgery Protocol Incentive Spirometry 10x per Hour Resume Home Meds Where Appropriate DVT Prophylaxis Per Surgery Protocol Monitor Daily Labs ROS-No Headache, No Visual Changes, No Nausea, No Vomiting, No Fever, No Chills, No Neck Pain or Stiffness, No Chest Pain, No Palpitations, No SOB, No EVANS, No Cough, No Sputum, No Wheezing, No Abdominal Pain, No Diarrhea, No Hematemesis, No Hemoptysis, No Unexpected Weight Loss, No Flank pain, No Melena, No Hematochezia, No Frequency, No Urgency, No Burning, No Hematuria, No Rashes, No Diaphoresis. Appetite is Normal, Sore Back Physical Exam Gen-AAO x 3, NAD, Afebrile Head-NCAT, EOMI, PERRLA, Anicteric Sclera, No Posterior Pharyngeal Erythema Neck-Supple, No JVD, No Thyromegaly, No Masses, No LAD, No Bruits Lungs-Clear to Auscultation Bilaterally, No Rales, No Rhonchi, No Wheezing, No Crepitus Chest-No S4, +S1, +S2, No S3, No Murmurs, No Rubs, No Gallops, No Ectopy Abdomen-Soft, Bowel Sounds Present, Non Tender, Non Distended, No Hepatomegaly, No Splenomegaly, No Palpable Masses, No Rebound, No Rigidity, No Guarding Musculoskeletal-Full Range of Motion Bilaterally, No CVAT Extremities-No Cyanosis, No Clubbing, No Edema Nuero-Cranial Nerves II-XII grossly intact, Motor WNL, DTRs WNL, Strength WNL, Non Focal Psych-Normal Mood Admission and Anticipated Discharge Date Admission Date: August 30, 2019 Anticipated date of discharge: 09/01/19 Results & Data Results & Data ([facility]) Vital Signs (Past 12 Hours) Vital Signs Temp Pulse Resp BP Pulse Ox 09/02/19 07:38 36.6 C 56 L 16 123/70 95 09/02/19 00:00 36.6 C 64 16 125/74 96
--- NOTE | 2019-09-02 12:56 | Discharge Summary ---
Date of Service September 02, 2019 Admission HPI Per Admitting Provider This is a 69-year-old male that presents with worsening back and bilateral leg pain. After failing extensive course of nonoperative care is here for surgical intervention. Principal Diagnosis Lumbar spinal stenosis with neurogenic claudication Discharge Data Allergies Allergy/AdvReac Type Severity Reaction Status Date / Time No Known Allergies Allergy Verified 08/21/19 11:14 Consultations 08/30/19 16:01 Consult Case Management - Discharge Planning Routine Consult Hospitalist Routine Procedures Performed Operation Date: 08/30/19 10:50 Actual Procedures p L3-S1 Decompression and Fusion, Spinal Cord Monitoring, Application of Bone Morphogenetic Protein and Osetoamp, Interbody placement L4-L5(Not Applicable) - Albaro Cash DO Ordered Studies 08/30/19 10:50 FL fluoroscopy <1hr Routine FL lumbar spine 2-3V Routine Hospital Course (1) Neurogenic claudication due to lumbar spinal stenosis: Patient underwent multilevel lumbar decompression fusion tolerated so was taken to the orthopedic floor postoperatively postop day 1 he was up and ambulating progressed to postop day #2 on postop day 3 had excellent strength testing pain well controlled subsequent discharge home. Discharge orders and instructions from the chart for further review. Total Time Total Time Spent Total Time Spent (In Minutes): 20 minutes Discharge Plan Discharge Items Patient Disposition: Home - Self-Care Reason For Visit: LUMBAR SPINAL STENOSIS W NEUROGENIC CLAUDICATION Discharge Diagnosis: Lumbar spinal stenosis with neurogenic claudication and herniated nucleus pulposus L2-3 Activity: As commented below Non-emergency contact: Primary Care Provider Call non-emergency contact if: you have any medication questions Follow-up/Referrals: José Miguel Lee D.O. [Primary Care Provider] - Diet: Regular Addtl Attending Provider Instructions: ACTIVITY RECOMMENDATIONS: SELF CARE INSTRUCTIONS AFTER THORACIC/LUMBAR FUSIONS 1. You may walk to your tolerance. It is good exercise for your legs and back. Expect some back and intermittent leg aches and pains. 2. You may perform "counter-top" level activities (make a sandwich, zane with a project, etc.). 3. No bending or lifting of more than 10 pounds or back twisting of any nature (roll like a log when turning in bed). 4. You may ride in a car for 20-30 minutes at a time. No driving until after your first visit with your doctor. 5. Frequent changes of position and restricting sitting to 30 minutes at a time will help limit the amount of back spasms and stiffness you may experience. 6. You may discontinue the use of ambulatory aids (cane, crutches, etc.) once your strength and confidence allow. 7. You may security installation sales technician the shower and let water strike your incision when you arrive home at least once daily. Do not take a tub bath, sit in a hot tub or go into a swimming pool until after your first recheck in the office. SPECIAL CARE INSTRUCTIONS: VERY IMPORTANT TO READ AND REVIEW A. Your surgical incision has been closed with a cosmetic suture under the skin that will dissolve in about 6 weeks. In 14 days, you can use a pair of clean scissors and cut the suture that is left outside of the skin at the ends of your incision. 1. The small skin tapes can be removed 7 days after surgery if they have not fallen off by that point. 2. You may keep the wound open to air as much as possible to promote healing after post-op day number 5 unless told otherwise by your doctor. 3. If you think the wound looks like it is becoming infected (redness or worsening drainage) and/or you are experiencing fever, chill or worsening back pain and muscle spasms, contact the office so that we may evaluate you as soon as possible. B. Complications are uncommon, but please contact us if you have any signs or symptoms of: 1. wound infection (fever higher than 102.5 degrees F, redness, separation of wound, drainage, or increasing pain from the incision) 2. blood clots in legs (pain, swelling, redness and warmth in legs) 3. urinary tract infection (fever higher than 102.5 degrees F, burning upon urination or increased frequency of urination) 4. nerve problems (inability to walk on your toes or heels, numbness, loss of bowel or bladder control) 5. any other symptoms that concern you C. Please call the office at if you have any concerns or questions about your operation or recovery. D. No smoking! Smoking drastically decreases the chance of a solid fusion. E. Do not take any anti-inflammatory medications (Indocin, Advil, Motrin, Aspirin, Naprosyn, etc.) as these may inhibit the chance of a solid fusion. Tylenol is okay to take for pain. MANAGING PAIN AFTER SPINAL SURGERY 1. Narcotic medication is intended for short-term use and will be provided for surgical pain. Surgical pain usually lasts for a period of 4-6 weeks. Narcotic medication includes Percocet, Vicodin, Darvocet, Tylenol #3 or Lortab. 2. Longer-term pain is more appropriately treated with non-narcotic medication such as Tylenol ES. 3. Muscle spasm is not appropriately treated with narcotics. Muscle relaxers such as Soma, Flexeril or Skelaxin can be used along with Tylenol ES. 4. Remember that we all live with some "aches and pains". This is not unusual or uncommon after an injury or as we get older. a. Back pain is expected and may include muscle spasms for 4 to 6 weeks after surgery. The pain should gradually improve. If the pain worsens for no apparent reason, please contact the office. b. Intermittent leg pain may also be experienced and should not be concerned about unless it worsens for no apparent reason. If so, please contact the office. 5. We will provide appropriate medication within the normal guidelines of their prescribed use. We will also be very cautious and aware of potential abuse and extended duration of patients' medication needs. a. Pain medications are for your comfort and to assist with sleep and rest so that the tissue can heal. They are not provided in order to return to normal activity and should not be used through the day. To do so or worsening pain at night can result from ongoing tissue damage and development of tolerance to the prescribed medicine. 6. Please allow 2-3 days to process refills. Prescriptions will not be mailed but must be picked up at the office. FOLLOW UP VISIT: Keep your scheduled follow-up appointment. Any questions, please call the office at . Pending Studies at Discharge: No Stand-Alone Forms: My [facility] [employer], Opioid Pain Management, Smoking Ce ssation Medications and DC Order Prescriptions: New tramadol 50 mg tablet 50 mg PO Q6H PRN (Reason: pain, moderate) Qty: 30 RF: 0 oxycodone 5 mg tablet 5 mg PO Q6H PRN (Reason: pain, severe) Qty: 30 RF: 0 Continued metformin 500 mg Tablet 1,000 mg PO BID RF: 0 atorvastatin 20 mg Tablet 20 mg PO QAM RF: 0 isosorbide mononitrate 30 mg Tablet Extended Release 24 Hr 30 mg PO QAM RF: 0 clopidogrel 75 mg Tablet 75 mg PO QAM RF: 0 aspirin [Aspirin Low Dose] 81 mg Tablet,Delayed Release (Dr/Ec) 81 mg PO QPM RF: 0 bisoprolol fumarate 5 mg Tablet 7.5 mg PO QPM RF: 0 cholecalciferol (vitamin D3) [Vitamin D3] 25 mcg (1,000 unit) Tablet 25 mcg PO QAM RF: 0 lisinopril 20 mg Tablet 20 mg PO QAM RF: 0 potassium gluconate 595 mg (99 mg) Tablet 595 mg PO QPM RF: 0 venlafaxine 150 mg Tablet Extended Release 24hr 150 mg PO QAM RF: 0 omeprazole magnesium [Prilosec OTC] 20 mg Tablet,Delayed Release (Dr/Ec) 20 mg PO QAM RF: 0 pioglitazone [Actos] 45 mg Tablet 45 mg PO DAILY RF: 0 amlodipine 10 mg Tablet 10 mg PO QAM RF: 0 Testosterone 1 dose INJ DIRECTED RF: 0 gabapentin 600 mg tablet 1,200 mg PO TID RF: 0 methylprednisolone 4 mg tablet 4 mg PO DAILY RF: 0 Jardiance 25 mg tablet 25 mg PO DAILY RF: 0 Discharge Orders: Discharge Order (Routine); Ordered 09/02/19 Ordered By: Albaro Villa/Other Patient Handouts: Managing Type 2 Diabetes Admission Data Admit Date/Time: 08/30/19 13:59 Attending Provider: Albaro Cash Admit Provider: Albaro Cash Primary Care Provider: José Miguel Lee Other Providers: Antoni Hughes Other Interventions: Discharge Summary Assessment (RN) Last Done: 09/02/19 10:51
[2019-09-02] MEDS: TRAMADOL HCL 50 MG TABLET PO PRN (13:38)
== END 2019-09-02 13:55 | disposition home or self-care (01) | DRG 454 ==
LOC: ASU 08:45 → 3E 13:59

== ENCOUNTER 2021-08-03 08:29 | Inpatient (IN) ==
--- NOTE | 2021-07-19 14:15 | PAT Medication Instructions ---
Medication Instructions Date of Service July 19, 2021 Home Medications aspirin 81 mg tablet,delayed release (Aspirin Low Dose) 81 mg PO HS atorvastatin 20 mg tablet 80 mg PO HS bisoprolol fumarate 5 mg tablet 7.5 mg PO HS cholecalciferol (vitamin D3) 25 mcg (1,000 unit) tablet (Vitamin D3) 25 mcg PO QAM clopidogrel 75 mg tablet 75 mg PO HS isosorbide mononitrate 30 mg tablet,extended release 24 hr 30 mg PO QAM metformin 500 mg tablet 1,000 mg PO BID omeprazole magnesium 20 mg tablet,delayed release (Prilosec OTC) 20 mg PO QAM venlafaxine 150 mg tablet,extended release 24 hr 150 mg PO HS amlodipine 10 mg tablet 10 mg PO HS pioglitazone 45 mg tablet (Actos) 45 mg PO HS empagliflozin 25 mg tablet (Jardiance) 25 mg PO QAM gabapentin 600 mg tablet 1,200 mg PO TID methylprednisolone 4 mg tablet 4 mg PO QAM doxazosin 2 mg tablet 2 mg PO HS oxycodone-acetaminophen 7.5 mg-325 mg tablet 1 tab PO TID ASK your prescriber and surgeon aspirin 81 mg tablet,delayed release (Aspirin Low Dose) 81 mg PO HS clopidogrel 75 mg tablet 75 mg PO HS DO NOT take the morning of surgery cholecalciferol (vitamin D3) 25 mcg (1,000 unit) tablet (Vitamin D3) 25 mcg PO QAM metformin 500 mg tablet 1,000 mg PO BID empagliflozin 25 mg tablet (Jardiance) 25 mg PO QAM Take morning of surgery With a small sip of water, OTHERWISE NOTHING TO EAT OR DRINK AFTER MIDNIGHT: isosorbide mononitrate 30 mg tablet,extended release 24 hr 30 mg PO QAM omeprazole magnesium 20 mg tablet,delayed release (Prilosec OTC) 20 mg PO QAM gabapentin 600 mg tablet 1,200 mg PO TID methylprednisolone 4 mg tablet 4 mg PO QAM oxycodone-acetaminophen 7.5 mg-325 mg tablet 1 tab PO TID (okay to take up to 4 hours prior to surgery if needed) Take evening before surgery atorvastatin 20 mg tablet 80 mg PO HS bisoprolol fumarate 5 mg tablet 7.5 mg PO HS metformin 500 mg tablet 1,000 mg PO BID venlafaxine 150 mg tablet,extended release 24 hr 150 mg PO HS amlodipine 10 mg tablet 10 mg PO HS pioglitazone 45 mg tablet (Actos) 45 mg PO HS gabapentin 600 mg tablet 1,200 mg PO TID doxazosin 2 mg tablet 2 mg PO HS oxycodone-acetaminophen 7.5 mg-325 mg tablet 1 tab PO TID Other Notes If you have any questions please call us at [phone] or [phone] or [phone] or [phone]
--- NOTE | 2021-07-20 10:18 | Anesthesiology Consultation ---
Date of Service July 20, 2021 Assessment & Plan (1) Encounter for pre-operative examination: - check BSG am DOS. - awaiting stress test report and chest CT report if available. - pt reports upcoming PCP pre-op evaluation. - will attempt to obtain most recent hematology note. - cardiology pre-op evaluation 05/21/21 and clearance 06/14/21: "...shortness of breath...improving mild dyspnea...nuclear stress test was performed on 05/03/21...apical ischemia...cardiac catheterization...s/p cardiac cath s/p stent 05/14/21...low to intermediate cardiac risk..." - COVID screening: Per assessment on 07/20/2021: Travel screen negative, no known COVID-19 positive contacts or current COVID-19 related symptoms in past 2 weeks. Patient vaccinated. Surgeon arranging preop COVID testing, scheduled 07/30/2021. Awaiting results. Chart Review Chart Review: Pending: Refer to Additional Notes / Consult section and Patient seen in Pre Admission Testing Teaching & Discussion Pre-Anesthesia Teaching/Discussion Notes: Instructed NPO after midnight before surgery, except medications with 15 cc of water. Medication instructions provided according to the PAT guidelines. History Surgery Operation Date: 08/03/21 10:35 Proposed Procedures p L2-L3 Decompression and Fusion, Spinal Cord Monitoring - Albaro Cash DO Height/Weight Height: 5 ft 8 in Weight: 112.1 kg Allergies Allergy/AdvReac Type Severity Reaction Status Date / Time No Known Allergies Allergy Verified 07/19/21 09:39 Medications Home Medications Medication Instructions Recorded Confirmed Last Taken aspirin 81 mg tablet,delayed 81 mg PO HS 05/08/19 07/19/21 08/23/19 18:00 release (Aspirin Low Dose) atorvastatin 20 mg tablet 80 mg PO HS 05/08/19 07/19/21 08/30/19 06:00 bisoprolol fumarate 5 mg tablet 7.5 mg PO HS 05/08/19 07/19/21 08/29/19 18:00 cholecalciferol (vitamin D3) 25 25 mcg PO QAM 05/08/19 07/19/21 08/29/19 07:00 mcg (1,000 unit) tablet (Vitamin D3) clopidogrel 75 mg tablet 75 mg PO HS 03/06/2307/19/21 08/29/19 07:00 isosorbide mononitrate 30 mg 30 mg PO QAM 05/08/19 07/19/21 08/30/19 06:00 tablet,extended release 24 hr metformin 500 mg tablet 1,000 mg PO BID 05/08/19 07/19/21 Unknown omeprazole magnesium 20 mg 20 mg PO QAM 05/08/19 07/19/21 Unknown tablet,delayed release (Prilosec OTC) venlafaxine 150 mg tablet,extended 150 mg PO HS 05/08/19 07/19/21 Unknown release 24 hr amlodipine 10 mg tablet 10 mg PO HS 05/16/19 07/19/21 08/30/19 06:00 pioglitazone 45 mg tablet (Actos) 45 mg PO HS 05/16/19 07/19/21 Unknown empagliflozin 25 mg tablet 25 mg PO [facility] 08/30/19 07/19/21 Unknown (Jardiance) gabapentin 600 mg tablet 1,200 mg PO TID 08/30/19 07/19/21 Unknown methylprednisolone 4 mg tablet 4 mg PO M 08/30/19 07/19/21 Unknown doxazosin 2 mg tablet 2 mg PO HS 07/19/21 07/19/21 Unknown oxycodone-acetaminophen 7.5 mg-325 1 tab PO TID 07/19/21 07/19/21 Unknown mg tablet Past Medical History Medical History (Updated 07/20/21 @ 10:29 by Alice Fleming PA-C) Abnormal echocardiogram mild septal hypertrophy, normal wall motion, mild diastolic dysfunction on 06/2021 echo report Anxiety Ascending aorta dilatation 4.1 cm on 06/2021 echo CAD (coronary artery disease) stents x4 total - on plavix; s/p bare metal stent placement 05/14/21 Depression Diabetes mellitus, type 2 NIDDM Fibromyalgia GERD (gastroesophageal reflux disease) controlled Hearing deficit Hx of melanoma of skin Hx TIA/stroke w/o resid 2017 Hyperlipidemia Hypertension controlled, stable per pt Low testosterone HX Obesity Polycythemia Receives occasional phlebotomy/last phlebotomy 6 months ago (follows with hematology/Dr. Hernandez) Rheumatoid arthritis neck stiffness/pain Sleep apnea on CPAP-compliant Spinal stenosis Patient denies h/o seizures, heart failure, blood clots or blood transfusions. Exercise / Class Metabolic Activity III < 4 Walking/Shop/Light housework (ambulates with cane, denies CP or SOB) Past Family History Family History Mother Family history of diabetes mellitus Family/Other Family history of diabetes mellitus Brother Family history of pancreatic cancer Past Surgical History Surgical History (Updated 07/20/21 @ 15:01 by Alice Fleming PA-C) History of colonoscopy History of endoscopy History of lumbar surgery 08/30/19: Grade 1 view, glidescope 4, ETT 8.0. Pt reports severe right hip/hernia pain resolved with injection outpatient post-op. States Dr. Cash's office is aware for upcoming surgery. Hx of cardiac catheterization x2. 05/14/21: 90% stenosis LAD s/p bare metal stent x1 [facility]. 2017- stents x3 ([place]). Hx of cholecystectomy Hx of melanoma excision BACK Hx of meniscectomy of right knee Past Anesthesia History No Hx of Anesthesia Complications and No Family Hx of Anesthesia Complications History of PONV No Hx of PONV and No Hx of Motion Sickness Social History Smoking Status: Former smoker tobacco type: cigarettes Do You Dip or Chew Tobacco: No Smoking End Date: 1996 Hx Alcohol Use: Yes alcohol intake frequency: holidays/special occasions only Hx Substance Use: No substance use type: does not use Review of Systems Patient denies chest pain, shortness of breath, dyspnea on exertion, fever, chills, cough, wheezing, or palpitations. Physical Exam Vital Signs Vitals BP 113/71 P 68 TEMP 98.0 SP02 96% on RA RESP 17 Physical Full cervical extension range of motion without pain TMD 3.5 finger breaths Mallampati Score 3 Dentition: intact, upper partial 5 teeth across left side to right side; denies chipped or loose teeth, caps/crowns or implants Lungs: normal respiratory effort. Clear throughout to auscultation, no adventitious breath sounds Cardiac: regular rate and rhythm, no murmurs noted Carotid arteries: negative bruit bilat Lab Results Anesthesia Preop Results Results Anesthesia Widget: WBC 9.28 K/uL (4.8-10.8) 07/20/21 Hgb 13.8 g/dL (14.0-18.0) L 07/20/21 Hct 43.5 % (42-52) 07/20/21 Plt 225 K/uL (130-400) 07/20/21 Na 140 mmol/L (136-145) 07/20/21 K 4.1 mmol/L (3.5-5.1) 07/20/21 Cl 103 mmol/L (98-107) 07/20/21 CO2 30 mmol/L (21-32) 07/20/21 BUN 15 mg/dl (6-23) 07/20/21 Creat 0.76 mg/dl (0.6-1.4) 07/20/21 Glucose Level 154 mg/dl (70-99(Fasting)) H 07/20/21 PT 10.7 Seconds (9.0-12.0) 07/20/21 PTT 23.5 Seconds (21.0-31.0) 07/20/21 INR 1.0 (0.9-1.1) 07/20/21 HA1c 7.9 % (4.5-5.6) H 07/20/21 Urine Color Dark Yellow 07/20/21 Urine Appearance Clear (Clear) 07/20/21 Urine pH 5.0 (4.5-7.5) 07/20/21 Urine Specific Wesley 1.032 (1.000-1.030) H 07/20/21 Urine Protein 1+ (Negative) H 07/20/21 Urine Glucose (UA) Negative (Negative) 07/20/21 Urine Ketones Trace (Negative) H 07/20/21 Urine Blood Negative (Negative) 07/20/21 Urine Nitrite Negative (Negative) 07/20/21 Urine Bilirubin 1+ (Negative) H 07/20/21 Urine Urobilinogen Negative (Negative) 07/20/21 Urine Leukocyte Esterase Negative (Negative) 07/20/21 Urine WBC (Auto) 1-5 /hpf (0-5) 07/20/21 Urine RBC (Auto) 5-10 /hpf (0-4) H 07/20/21 Urine Hyaline Casts (Auto) 10-30 /lpf (0-5) H 07/20/21 Urine Epithelial Cells (Auto) 20-30 /lpf (0-5) H 07/20/21 Urine Bacteria (Auto) Negative (Negative) 07/20/21 Blood Type A Positive 07/20/21 Antibody Screen NEGATIVE 07/20/21 Testing Laboratory Results Francisca at surgeon's office made aware of elevated A1c. Electrocardiogram Date: 07/20/21 Sinus bradycardia, rate 57 bpm Chest X-Ray Date: 01/05/21 No positive findings Echocardiogram Date: 06/17/21 EF 50-55% Mild septal hypertrophy, normal wall motion Mild right and left atrial enlargement Ascending aorta dilation 4.1 cm Grade I diastolic dysfunction Cardiac Catheterization Date: 05/14/21 90% proximal LAD stenosis, s/p bare-metal stent Patent train of stents from ostial RCA to distal RCA Mild circumflex disease
[~2021-08-03 08:29] MED LIST changes: -CEFAZOLIN 2000MG 2,000 MG/15 ML SYR IV SCH; +ceFAZolin 2000MG 2,000 MG/15 ML SYR IV SCH
--- NOTE | 2021-08-03 09:53 | History & Physical Report ---
Date of Service August 03, 2021 Assessment & Plan (1) Neurogenic claudication due to lumbar spinal stenosis: Plan: L2-L3 decompression and fusion History of Present Illness Chief Complaint: Back and leg pain Primary Care Provider: José Miguel Lee DO This is a 71-year-old male who presents with chronic persistent back and leg pain. Failing course of nonoperative care is here for surgical invention. Allergies Allergy/AdvReac Type Severity Reaction Status Date / Time No Known Allergies Allergy Verified 08/03/21 09:06 Home Medications Medication Instructions Recorded Confirmed Type aspirin 81 mg tablet,delayed 81 mg PO HS 05/08/19 08/03/21 History release (Aspirin Low Dose) atorvastatin 20 mg tablet 80 mg PO HS 05/08/19 08/03/21 History bisoprolol fumarate 5 mg tablet 7.5 mg PO HS 05/08/19 08/03/21 History cholecalciferol (vitamin D3) 25 25 mcg PO QAM 05/08/19 08/03/21 History mcg (1,000 unit) tablet (Vitamin D3) clopidogrel 75 mg tablet 75 mg PO HS 05/08/19 08/03/21 History isosorbide mononitrate 30 mg 30 mg PO QAM 05/08/19 08/03/21 History tablet,extended release 24 hr metformin 500 mg tablet 1,000 mg PO BID 05/08/19 08/03/21 History omeprazole magnesium 20 mg 20 mg PO QAM 05/08/19 08/03/21 History tablet,delayed release (Prilosec OTC) venlafaxine 150 mg tablet,extended 150 mg PO HS 05/08/19 08/03/21 History release 24 hr amlodipine 10 mg tablet 10 mg PO HS 05/16/19 08/03/21 History pioglitazone 45 mg tablet (Actos) 45 mg PO HS 05/16/19 08/03/21 History empagliflozin 25 mg tablet 25 mg PO QAM 08/30/19 08/03/21 History (Jardiance) gabapentin 600 mg tablet 1,200 mg PO TID 08/30/19 08/03/21 History methylprednisolone 4 mg tablet 4 mg PO QAM 08/30/19 08/03/21 History doxazosin 2 mg tablet 2 mg PO HS 07/19/21 08/03/21 History oxycodone-acetaminophen 7.5 mg-325 1 tab PO TID 07/19/21 08/03/21 History mg tablet Past Med/Surg History Medical History Abnormal echocardiogram mild septal hypertrophy, normal wall motion, mild diastolic dysfunction on 06/2021 echo report Anxiety Ascending aorta dilatation 4.1 cm on 06/2021 echo CAD (coronary artery disease) stents x4 total - on plavix; s/p bare metal stent placement 05/14/21 Depression Diabetes mellitus, type 2 NIDDM Fibromyalgia GERD (gastroesophageal reflux disease) controlled Hearing deficit Hx of melanoma of skin Hx TIA/stroke w/o resid 2016 Hyperlipidemia Hypertension controlled, stable per pt Low testosterone HX Obesity Polycythemia Receives occasional phlebotomy/last phlebotomy 6 months ago (follows with hematology/Dr. Hernandez) Rheumatoid arthritis neck stiffness/pain Sleep apnea on CPAP-compliant Spinal stenosis Surgical History History of colonoscopy History of endoscopy History of lumbar surgery 08/30/19: Grade 1 view, glidescope 4, ETT 8.0. Pt reports severe right hip/hernia pain resolved with injection outpatient post-op. States Dr. Cash's office is aware for upcoming surgery. Hx of cardiac catheterization x2. 05/14/21: 90% stenosis LAD s/p bare metal stent x1 [facility]. 2017- stents x3 ([place]). Hx of cholecystectomy Hx of melanoma excision BACK Hx of meniscectomy of right knee Family History Mother Family history of diabetes mellitus Family/Other Family history of diabetes mellitus Brother Family history of pancreatic cancer Social History Smoking Status: Former smoker Smoking End Date: 1996; Second Hand Exposure: No; Do You Dip or Chew Tobacco: No; Hx Alcohol Use: Yes Hx Substance Use: No Preferred Language: Bengali Communication Ability: Effective Fitness Sales Consultant Required: No Beliefs That Will Affect Care: None marital status: Current Living Situation: Spouse Current Living Situation Comment: GRANDAUGHTER Other Information That Helps Us Care for You: No Feels Safe at Home: Yes Assistive Devices: Glasses and Walker Assistive Devices Comment: CANE FORGING PRESS SETTER UP, PARTIALS UPPER Physical Exam Physical Exam: Patient is alert and oriented Heart regular rate and rhythm Lungs clear Results & Data Results & Data ([facility]) Vital Signs (Past 12 Hours) Vital Signs Temp Pulse Resp BP Pulse Ox 08/03/21 08:52 36.8 C 68 20 122/69 95
--- NOTE | 2021-08-03 09:53 | History & Physical Bridge Note ---
Date of Service August 03, 2021 History & Physical Bridge Note I have examined the patient, reviewed the History & Physical and in the interval since the performance of the History & Physical I have noted the following changes of clinical significance: no changes noted
[2021-08-03] MEDS ORDERED: ceFAZolin 330 MG/ML 1 GM VIAL ONE (09:59)
[2021-08-03] MEDS ORDERED: BUPIVACAINE/EPINEPHRINE 0.25% 1:200,000 30 ML VIAL ONE (09:59)
[2021-08-03] MEDS ORDERED: ONDANSETRON INJ 2 MG/ML 2 ML VIAL ONE (10:05)
[2021-08-03] MEDS ORDERED: SUCCINYLCHOLINE CHLORIDE 20 MG/ML 10 ML VIAL IV ONE (10:05)
[2021-08-03] MEDS ORDERED: MIDAZOLAM HCL 1 MG/ML 2ML VIAL ONE (10:05)
[2021-08-03] MEDS ORDERED: DEXAMETHASONE SOD INJ 4 MG/ML VIAL ONE (10:05)
[2021-08-03] MEDS ORDERED: PROPOFOL IV EMULSION 10 MG/ML 20 ML VIAL IV ONE (10:05)
[2021-08-03] MEDS ORDERED: fentaNYL citrate 100 MCG/2 ML VIAL ONE ×2 (10:05→12:05)
[2021-08-03] MEDS ORDERED: KETAMINE 50 MG/5 ML SYRINGE ONE (10:05)
[2021-08-03] MEDS ORDERED: LIDOCAINE 2% 2 ML VIAL/AMP(20MG/ML) INFIL ONE (10:05)
[2021-08-03] MEDS ORDERED: ePHEDrine sulfate 50 MG/ML AMP ONE (11:00)
[2021-08-03] MEDS ORDERED: ROCURONIUM BROMIDE 10 MG/ML 5 ML VIAL IV ONE (11:00)
[2021-08-03] MEDS ORDERED: PHENYLEPHRINE HCL 10 MG/ML VIAL ONE (11:00)
[2021-08-03] MEDS ORDERED: PROMETHAZINE HCL 12.5 MG in SODIUM CHLORIDE 0.9% 50 ML IV PRN ×2 (11:24→15:00)
[2021-08-03] MEDS ORDERED: LABETALOL HCL IV 5 MG/ML 20ML IV PRN (11:24)
[2021-08-03] MEDS ORDERED: NALOXONE HCL 0.4 MG/1 ML VIAL/CARP IV PRN ×2 (11:24→15:00)
[2021-08-03] MEDS ORDERED: ONDANSETRON INJ 2 MG/ML 2 ML VIAL IV PRN ×2 (11:24→15:00)
[2021-08-03] MEDS ORDERED: FLUMAZENIL 0.1 MG/1 ML 10 ML VIAL IV PRN (11:24)
[2021-08-03] MEDS ORDERED: ATROPINE SULFATE 0.1 MG/ML 10ML SYR IV PRN (11:24)
[2021-08-03] MEDS ORDERED: ePHEDrine sulfate 50 MG/ML AMP IV PRN (11:24)
[2021-08-03] MEDS ORDERED: NEOSTIGMINE METHYLSULFATE 1 MG/ML 10ML VIAL ONE (12:14)
[2021-08-03] MEDS ORDERED: GLYCOPYRROLATE 0.2 MG/ML VIAL ONE (12:14)
--- NOTE | 2021-08-03 12:32 | Operative Report ---
Post Operative Report Pre & Post Diagnosis Operation Date: 08/03/21 10:05 Pre-Op Diagnosis: Neurogenic claudication due to lumbar spinal stenosis L2-L3 Post-Op Diagnosis: Neurogenic claudication due to lumbar spinal stenosis L2-L3 I identified the patient and participated in the time-out.: Yes Procedure Operation Date: 08/03/21 10:05 Actual Procedures #1 lumbar decompression with bilateral medial facetectomies and foraminotomies L1-L2 L2-L3. #2 posterior spinal fusion L2-L3. #3 placement posterior instrumentation L2-L3. #4 interbody fusion L2-L3. #5 placement of Spira cage 9 x 26 mm at L2-L3. #6 placement locally harvested morselized autograft in the posterior gutters. #7 placement of I factor combined with V toss in the interbody space and posterior lateral gutters. Surgeon Albaro Cash, DO Asphalt Paving Foreman Karina Souza Estimated Blood Loss 400 Findings See Below Patient is 5 foot 8 weighing over 112 kg with a BMI in excess of 37. The patient's body habitus did contribute to significant technical difficulty required deepest retractors longus instruments in order to perform his procedure. This at least 50% increased operative time. Specimens None Indications This is a 71-year-old male who presents with above-mentioned diagnosis after failing course of nonoperative care is here for the above-mentioned procedure. Description of Procedure Patient was met with identified informed consent obtained. Patient was then taken to the operative suite underwent a patient placed in a prone position on a Zion table atop the Jadon frame. All bony prominences well-padded eyes inspected to ensure no external pressure placed upon the. This point lumbar spine was prepped and draped in the normal sterile fashion. Sharp dissection with assistance of Bovie cautery performed down to and exposing the lamina and transverse processes of L1-L2 and instrumentation at L3-L4. I then performed a complete laminectomy of L2 partial laminectomy of L1 including bilateral medial facetectomies and foraminotomies addressing severe spinal stenosis. Pedicle screws were then placed in L2 bilaterally and by way of a transforaminal approach on the right a complete discectomy of L2-L3 was performed endplates curetted to subcortical bleeding bone and a 9 x 26 mm spiral cage filled I factor tapped in position. I then used Anderson Creo connectors to the previous tad between L3-L4 and locked them into place. A new tad was then attached from L2 to the connectors and locked in the place. Transverse processes of L 2 L3 were then burred to subcortically bone. I factor combined with V toss and locally harvested morselized autograft was placed in the posterior gutters. 15 round LINDA drain inserted. Incision was then closed with 1 Vicryl the fascia 2-0 Vicryl subcutaneously and 4 Monocryl for final skin closure. Steri-Strip sterile dressings placed. Patient waken taken PACU stable condition. Please note spinal cord monitoring was utilized at the procedure no changes noted. Lastly Karina Souza was present at the entire surgery involved the patient positioning complex portions of the surgery and final skin closure. I attest to the content of the Intraoperative Record and any orders documented therein. Any exceptions are noted below.
[2021-08-03] MEDS ORDERED: FLOSEAL HEMOSTATIC MATRIX 10ML TOP ONE (12:37)
--- NOTE | 2021-08-03 12:48 | Fluoroscopy Report ---
FL lumbar spine 2-3V CLINICAL HISTORY: L2-L3 DECOMPRESSION AND FUSION COMPARISON STUDY: None. FLUOROSCOPY TIME: 15 second. FINDINGS: 2 fluoroscopic spot image of the lumbar spine demonstrates posterior decompression fusion f rom L2 through the lower lumbar spine. The L2-L3 fusion is new from the prior study. IMPRESSION: Fluoroscopic assistance provided for L2-L3 posterior decompression and fusion. ACT 112: Negative or not required by law. Electronically signed by: Ever King M.D. 08/03/2021 12:47 PM
[2021-08-03] MEDS: fentaNYL citrate 100 MCG/2 ML VIAL IV PRN ×4 (12:54→13:18)
[2021-08-03] MEDS: HYDROmorphone INJ 1 MG/ML SYRINGE IV PRN ×9 (13:22→14:18)
--- NOTE | 2021-08-03 14:37 | Anesthesiology Progress Note ---
Date of Service August 03, 2021 Anesthesia Post Procedure Vital Signs Vital Signs: Temp Pulse Pulse Resp BP BP Pulse Ox 08/03/21 14:30 36.4 C L 92 H 16 117/68 94 08/03/21 14:20 90 14 125/73 94 08/03/21 14:10 86 14 116/68 94 08/03/21 14:00 83 16 119/59 L 94 08/03/21 13:50 78 16 136/78 94 08/03/21 13:40 79 16 144/69 H 94 08/03/21 13:30 73 12 133/60 94 08/03/21 13:20 79 12 115/81 95 08/03/21 13:10 72 12 108/47 L 99 08/03/21 13:00 70 12 118/61 99 08/03/21 12:50 76 12 112/53 L 95 08/03/21 12:42 36.8 C 77 22 151/71 H 97 08/03/21 08:52 36.8 C 68 20 122/69 95 Pain Intensity Bilateral Generalized: Pain Intensity: 5 Transfer of Care Handoff Completed per policy Notes Mental Status: alert / awake / arousable Patient Amnestic to Procedure: Yes Nausea / Vomiting: adequately controlled Pain: adequately controlled Airway Patency, RR, SpO2: stable & adequate BP & HR: stable & adequate Hydration State: stable & adequate Anesthetic Complications: no major complications apparent
[2021-08-03] MEDS ORDERED: PHARMACY GLYCEMIC MGMT CONSULT PRN (15:00)
[2021-08-03] MEDS ORDERED: ALUMINUM/MAGNESIUM SUSP 30 ML UDC PO PRN (15:00)
[2021-08-03] MEDS ORDERED: ACETAMINOPHEN 500 MG TAB PO PRN (15:00)
[2021-08-03] MEDS ORDERED: ONDANSETRON 4 MG OD TAB PO PRN (15:00)
[2021-08-03] MEDS ORDERED: HYDROmorphone INJ 0.5 MG/0.5 ML SYR IV PRN (15:00)
[2021-08-03] MEDS ORDERED: DO NOT ADMINISTER PNEUMOCOCCAL VACCINE PRN (15:00)
[2021-08-03] MEDS ORDERED: diphenhydrAMINE Capsule 25 MG CAP PO PRN (15:00)
[2021-08-03] MEDS ORDERED: bisacodyL 10 MG SUPP PR PRN (15:00)
[2021-08-03] MEDS ORDERED: FAMOTIDINE 20 MG TAB PO PRN (15:00)
[2021-08-03] MEDS ORDERED: ACETAMINOPHEN 1,000 MG/100 ML VIAL IV PRN (15:00)
[2021-08-03] MEDS ORDERED: HYDROmorphone INJ 1 MG/ML SYRINGE IV PRN (15:00)
[2021-08-03] MEDS ORDERED: traMADol HCL 50 MG TABLET PO PRN (15:00)
[2021-08-03] MEDS ORDERED: LORazepam 0.5 MG TAB PO PRN (15:00)
[2021-08-03] MEDS ORDERED: METOCLOPRAMIDE HCL INJ 5 MG/ML 2 ML VIAL IV PRN (15:00)
[2021-08-03] MEDS ORDERED: SOD PHOSPHATE/SOD BIPHOSPHATE ENEMA 132 ML BTL PR PRN (15:00)
[2021-08-03] MEDS ORDERED: LORazepam 2 MG/1 ML VIAL IV PRN (15:00)
[2021-08-03] MEDS ORDERED: MAGNESIUM HYDROXIDE SUSP 30 ML UDC PO PRN (15:00)
[2021-08-03] MEDS ORDERED: DO NOT ADMINISTER FLU VACCINE PRN (15:00)
[2021-08-03] MEDS ORDERED: hydrOXYzine HCl 25 MG TAB PO PRN (15:00)
[2021-08-03] MEDS ORDERED: GLUCOSE 40% GEL 15 GM TUBE PO PRN (15:30)
[2021-08-03] MEDS ORDERED: GLUCOSE 10 TABS/TUBE PO PRN (15:30)
[2021-08-03] MEDS ORDERED: INSULIN GLARGINE SOLOSTAR 100 UNITS/ML 3 ML PEN SC ONE (15:30)
[2021-08-03] MEDS ORDERED: GLUCAGON FOR INJ 1 MG VIAL IM PRN (15:30)
[2021-08-03] MEDS ORDERED: DEXTROSE 50% 50 ML SYRINGE IV PRN (15:30)
[2021-08-03] MEDS ORDERED: CARBOHYDRATES FOR HYPOGLYCEMIA PO PRN (15:30)
--- NOTE | 2021-08-03 15:33 | Hospitalist Consultation ---
Date of Consultation August 03, 2021 Assessment & Plan (1) Neurogenic claudication due to lumbar spinal stenosis: (2) Spinal stenosis: - Pain management, bowel regimen and DVT ppx per the primary team - PT/OT consults-patient plans on doing outpatient therapy - Follow am CBC to monitor for acute blood loss - Holding plavix and aspirin for other medical conditions per Dr. Cash, resume when stable (3) CAD (coronary artery disease): (4) Ascending aorta dilatation: (5) Hypertension: (6) Hyperlipidemia: - Continue on home medications including amlodipine 10 mg daily, atorvastatin 80 mg HS, bisoprolol fumarate 7.5 mg HS, isosorbide mononitrate 30 QAM - Holding plavix and asa for spinal surgery, resume when stable per Dr. Cash - Last echo 06/2021 showing mild septal hypertrophy, normal wall motion, mild diastolic dysfunction. AAA measuring 4.1 cm. - Hx of stent x 4 total, s/p bare metal stent placement on 05/14/21 -Denies any current chest pain or shortness of breath (7) Polycythemia: - Phlebotomy as needed, last was over a year ago, follow with hematology last seen [address] Hernandez (8) Rheumatoid arthritis: - cont gabapentin , takes 1200 mg TID - oxycodone/acetaminophen 7.5 mg - 325 mg tabs TID, uses routinely, last bowel movement was yesterday - Continue methylprednisolone 4 mg QAM, has been on continue steroids for over 1 year-would attempt to wean off of this in the setting of possibly developing avascular necrosis (9) Diabetes mellitus, type 2: - Hold pioglitazone and jardiance - ISS with [facility] - Glycemic pharmacy consulted - Last A1C = 7.9 on 07/20/21 (10) Sleep apnea: - Cont cpap HS DVT ppx: - teds, scds CODE: Full Dispo: From home, likely to remain in the hospital x 1-2 days. Thank you for involving us in the care of Mr. Sarah. Please do not hesitate to call with questions or concerns. At this time medicine service will follow along. Supervising Physician Co-Signing Physician Notes Pt is a 71 y/o M with hx of CAD s/p stents, DMII, HTN, HLD, BPH, RA (on chronic steroid), Polycythemia, EUDARDO on CPAP, Depression/Anxiety, L DDD with spinal stenosis admitted for Lumbar decompression and fusion. PE: NAD, well developed Cardiac: normal S1/S2, no murmur Lungs: CTA, no wheezing Abd: ND, NT, Soft MSK: able to move b/l feet and knees Psych: AAOx3, normal affect A/P: Lumbar spinal stenosis with neurogenic claudication: -s/p lumbar decompression and fusion - POD # 0 - VSS - Pain management per primary team - PT/OT - c/w bowel regimen ---- LBM: yesterday DMII: -will hold metformin and actos - Continue Jardiance - ISS HTN: -BP wnl - will continue home meds - continue to monitor BP CAD s/p stents: -continue statin -DAPT currently on hold RA: -will continue home methylprednisolone dose -c/w gabapentin Agree with A/P by Mel Corbett PA-C History of Present Illness Reason for Consultation: Medical management Requesting Physician: Dr. Cash Attending Physician: Albaro Cash, History of Present Illness This is a 71 yo M with PMhx of CAD x 4 stents on Plavix, most recent bare-metal stent placement in May 2021, AAA measuring 4.1 cm in June 2021 on echo, HTN, HLD, polycythemia, rheumatoid arthritis, diabetes type 2, sleep apnea on CPAP, spinal stenosis, GERD, anxiety and depression who presented for elective L2-L3 lumbar decompression fusion by Dr. Cash on 08/03/2021. Today the patient reports doing well overall. He reports that his pain is well controlled, and routinely has been taking Percocet, gabapentin, and methylprednisolone for his rheumatoid arthritis. He states that he has severe arthritis, uses a cane routinely at home for ambulation assistance. He denies any numbness or tingling that is worse in his legs compared to prior to surgery earlier today. At baseline he has neuropathy secondary to his diabetes of which gabapentin improves. He does take 1200 mg up to 3 times daily. Last bowel movement was yesterday morning. He feels his mouth is dry and is drinking water without any difficulty. He denies any other acute complaints currently. In regards to polycythemia, his last phlebotomy treatment was over 1 year ago, and gets lab work done routinely. He was told by his clinical laboratory technologist, Dr. Tesfaye, that he does not need to follow-up with their office at this point anymore during their last visit 3 months ago. Allergies Allergy/AdvReac Type Severity Reaction Status Date / Time No Known Allergies Allergy Verified 08/03/21 09:06 Home Medications Medication Instructions Recorded Confirmed Type aspirin 81 mg tablet,delayed 81 mg PO HS 05/08/19 08/03/21 History release (Aspirin Low Dose) atorvastatin 20 mg tablet 80 mg PO HS 05/08/19 08/03/21 History bisoprolol fumarate 5 mg tablet 7.5 mg PO HS 05/08/19 08/03/21 History cholecalciferol (vitamin D3) 25 25 mcg PO QAM 05/08/19 08/03/21 History mcg (1,000 unit) tablet (Vitamin D3) clopidogrel 75 mg tablet 75 mg PO HS 05/08/19 08/03/21 History isosorbide mononitrate 30 mg 30 mg PO QAM 05/08/19 08/03/21 History tablet,extended release 24 hr metformin 500 mg tablet 1,000 mg PO BID 05/08/19 08/03/21 History omeprazole magnesium 20 mg 20 mg PO QAM 05/08/19 08/03/21 History tablet,delayed release (Prilosec OTC) venlafaxine 150 mg tablet,extended 150 mg PO HS 05/08/19 08/03/21 History release 24 hr amlodipine 10 mg tablet 10 mg PO HS 05/16/19 08/03/21 History pioglitazone 45 mg tablet (Actos) 45 mg PO HS 05/16/19 08/03/21 History empagliflozin 25 mg tablet 25 mg PO QAM 08/30/19 08/03/21 History (Jardiance) gabapentin 600 mg tablet 1,200 mg PO TID 08/30/19 08/03/21 History methylprednisolone 4 mg tablet 4 mg PO QAM 08/30/19 08/03/21 History doxazosin 2 mg tablet 2 mg PO HS 07/19/21 08/03/21 History oxycodone-acetaminophen 7.5 mg-325 1 tab PO TID 07/19/21 08/03/21 History mg tablet Patient History Medical History (Updated 08/03/21 @ 15:39 by Mel Corbett PA-C) Abnormal echocardiogram mild septal hypertrophy, normal wall motion, mild diastolic dysfunction on 06/2021 echo report Anxiety Ascending aorta dilatation 4.1 cm on 06/2021 echo CAD (coronary artery disease) stents x4 total - on plavix; s/p bare metal stent placement 05/14/21 Depression Diabetes mellitus, type 2 NIDDM Fibromyalgia GERD (gastroesophageal reflux disease) controlled Hearing deficit Hx of melanoma of skin Hx TIA/stroke w/o resid 2016 Hyperlipidemia Hypertension controlled, stable per pt Low testosterone HX Obesity Polycythemia Receives occasional phlebotomy/last phlebotomy 6 months ago (follows with he matology/Dr. Hernandez) Rheumatoid arthritis neck stiffness/pain Sleep apnea on CPAP-compliant Spinal stenosis Surgical History History of colonoscopy History of endoscopy History of lumbar surgery 08/30/19: Grade 1 view, glidescope 4, ETT 8.0. Pt reports severe right hip/hernia pain resolved with injection outpatient post-op. States Dr. Cash's office is aware for upcoming surgery. Hx of cardiac catheterization x2. 05/14/21: 90% stenosis LAD s/p bare metal [facility]- stents x3 ([place] Hx of cholecystectomy Hx of melanoma excision BACK Hx of meniscectomy of right knee Family History Mother Family history of diabetes mellitus Family/Other Family history of diabetes mellitus Brother Family history of pancreatic cancer Social History Smoking Status: Former smoker Smoking End Date: 1996; Second Hand Exposure: No; Do You Dip or Chew Tobacco: No; Hx Alcohol Use: Yes Hx Substance Use: No Preferred Language: Croatian Communication Ability: Effective General Manager In Training Required: No Beliefs That Will Affect Care: None marital status: Current Living Situation: Spouse Current Living Situation Comment: [facility] Other Information That Helps Us Care for You: No Feels Safe at Home: Yes Assistive Devices: Glasses and Walker Assistive Devices Comment: CANE STRAP CUTTER, PARTIALS UPPER Review of Systems Review of Systems: Constitutional: No fever, sweats or chills Eyes: No diplopia, no worsening or blurred vision ENT: normal hearing, no trouble swallowing Respiratory: No cough, sputum, dyspnea at rest or on exertion Cardiovascular: No chest pain, tightness or palpitations Abdomen: No pain, nausea, vomiting, diarrhea or constipation Musculoskeletal: No joint pain, calf pain, swelling Neurologic: No weakness, + baseline bilateral lower extremity numbness/tingling, + uses a cane for ambulation assistance Rheumatological: Multiple areas of joint arthritis Skin: No rash or itch Physical Exam Physical Exam: General: awake, alert, no apparent distress, obese BMI 37.6 Head: Normocephalic, atraumatic ENT: PERRL, EOMI, no pharyngeal exudate, mucous membranes slightly dry Chest: Clear to auscultation, on room air, no adventitious breath sounds Cardiac: Regular rate and rhythm, no murmur, no JVD, normal peripheral pulses, good capillary refill Abdominal: NABS x 4 quadrants, soft, nondistended, nontender to palpation, no rebound or guarding Extremities: Normal inspection, no peripheral edema or erythema, calfs nontender to palpation Psych: Normal mood and affect Neuro: AAO x 3, strength intact bilaterally and rated 5/5, no motor deficits, speech is clear, no peripheral sensory deficits Results & Data Results & Data ([facility]) Vital Signs (Past 12 Hours) Vital Signs Temp Pulse Pulse Resp BP BP Pulse Ox 08/03/21 14:40 87 16 132/66 93 08/03/21 14:30 36.4 C L 92 H 16 117/68 94 08/03/21 14:20 90 14 125/73 94 08/03/21 14:10 86 14 116/68 94 08/03/21 14:00 83 16 119/59 L 94 08/03/21 13:50 78 16 136/78 94 08/03/21 13:40 79 16 144/69 H 94 08/03/21 13:30 73 12 133/60 94 08/03/21 13:20 79 12 115/81 95 08/03/21 13:10 72 12 108/47 L 99 08/03/21 13:00 70 12 118/61 99 08/03/21 12:50 76 12 112/53 L 95 08/03/21 12:42 36.8 C 77 22 151/71 H 97 08/03/21 08:52 36.8 C 68 20 122/69 95 Laboratory Results 08/03/21 08/03/21 08/03/21 12:46 09:06 08:46 POC Glucose 203 H 138 H SARS-CoV-2, RNA, NAAT NEGATIVE Diagnostic Findings Lumbar Spine X-Ray 08/03/21 10:05 FL lumbar spine 2-3V CLINICAL HISTORY: L2-L3 DECOMPRESSION AND FUSION COMPARISON STUDY: None. FLUOROSCOPY TIME: 15 second. FINDINGS: 2 fluoroscopic spot image of the lumbar spine demonstrates posterior decompression fusion from L2 through the lower lumbar spine. The L2-L3 fusion is new from the prior study. IMPRESSION: Fluoroscopic assistance provided for L2-L3 posterior decompression and fusion. ACT 112: Negative or not required by law. Electronically signed by: Ever King M.D. 08/03/2021 12:47 PM
[2021-08-03] MEDS: oxyCODONE HCL IR 5 MG TAB (IMMEDIATE RELEASE) PO PRN ×2 (16:06→20:43)
[2021-08-03] MEDS: GABAPENTIN 600 MG TAB PO SCH ×2 (16:07→20:48)
[2021-08-03] MEDS: SODIUM CHLORIDE 0.9% 1000ML 1,000 ML IV SCH ×2 (16:10→22:51)
[2021-08-03] MEDS: ceFAZolin 2000MG 2,000 MG/15 ML SYR IV SCH (17:44)
[2021-08-03] MEDS: INSULIN ASPART PER UNIT SC SCH ×2 (17:58→20:49)
[2021-08-03] MEDS: amLODIPine BESYLATE 5 MG TAB PO SCH (20:47)
[2021-08-03] MEDS: ASPIRIN 81 MG ECTAB PO SCH (20:47)
[2021-08-03] MEDS: ATORVASTATIN 40 MG TAB PO SCH (20:47)
[2021-08-03] MEDS: DOXAZosin MESYLATE TAB 2 MG TAB PO SCH (20:48)
[2021-08-03] MEDS: DOCUSATE SODIUM/SENNA 50/8.6MG TAB PO SCH (20:49)
[2021-08-03] MEDS: VENLAFAXINE HCL XR 150 MG CAPXR PO SCH (20:50)
[2021-08-03] MEDS: BISOPROLOL FUMARATE 5 MG TAB PO SCH (20:53)
[2021-08-03] MEDS ORDERED: NON-FORMULARY MEDICATION (Pioglitazone [Actos] 45 mg Tablet) PO SCH (21:00)
[2021-08-04] MEDS: ceFAZolin 2000MG 2,000 MG/15 ML SYR IV SCH (02:16)
[2021-08-04] MEDS: SODIUM CHLORIDE 0.9% 1000ML 1,000 ML IV SCH (05:39)
[2021-08-04] MEDS: POLYETHYLENE (MIRALAX) 17 GM PACK PO SCH ×3 (05:44→18:42)
[2021-08-04] MEDS: oxyCODONE HCL IR 5 MG TAB (IMMEDIATE RELEASE) PO PRN ×4 (07:29→22:22)
[2021-08-04] MEDS: ISOSORBIDE MONO EXTENDED REL 30 MG TABCR PO SCH (08:29)
[2021-08-04] MEDS: dexAMETHasone 6 MG in SYRINGE 0 ML IV SCH (08:29)
[2021-08-04] MEDS: CHOLECALCIFEROL 1,000 UNITS 25 MCG TAB PO SCH (08:30)
[2021-08-04] MEDS: PANTOprazole 40 MG TAB PO SCH (08:30)
[2021-08-04] MEDS: GABAPENTIN 600 MG TAB PO SCH ×3 (08:30→21:02)
[2021-08-04] MEDS: INSULIN ASPART PER UNIT SC SCH ×4 (08:33→21:13)
[2021-08-04] MEDS ORDERED: COUGH DROP (SUGAR FREE) LOZ 24 LOZ/1 BOX BUCCAL STA (08:40)
[2021-08-04] MEDS ORDERED: INSULIN GLARGINE SOLOSTAR 100 UNITS/ML 3 ML PEN SC SCH (09:00)
[2021-08-04 09:08] LABS: Basophils # (auto) 0.01 K/uL (0-0.2); Basophils % (auto) 0.1 %; Eosinophils # (auto) 0.01 K/uL (0-0.5); Eosinophils % (auto) 0.1 %; Hemoglobin 11.8 g/dL (14.0-18.0); Immature Granulocytes # (auto) 0.09 K/uL (0.00-0.02); Immature Granulocytes % (auto) 0.9 %; Lymphocytes # (auto) 1.74 K/uL (1.2-3.4); Lymphocytes % (auto) 17.5 %; Mean Corpuscular Hemoglobin 28.2 pg (25-34); Mean Corpuscular Hgb Conc 31.9 g/dL (32-36); Mean Corpuscular Volume 88.3 fL (80-100); Mean Platelet Volume 9.6 fL (7.4-10.4); Monocytes # (auto) 0.69 K/uL (0.11-0.59); Monocytes % (auto) 6.9 %; Neutrophils # (auto) 7.39 K/uL (1.4-6.5); Neutrophils % (auto) 74.5 %; Platelet Count 220 K/uL (130-400); RDW Coefficient of Variation 17.4 % (11.5-14.5); RDW Standard Deviation 55.4 fL (36.4-46.3); Red Blood Count 4.19 M/uL (4.7-6.1); White Blood Count 9.93 K/uL (4.8-10.8)
[2021-08-04 09:23] LABS: BUN Creatinine Ratio 16.4 (10-20); Calcium 8.7 mg/dl (8.5-10.1); Creatinine Clr Calc Pharmacy 112.8 ml/min; Est GFR (African American) 108.2 ml/min; Est GFR (Non-African American) 93.3 ml/min; Potassium 4.2 mmol/L (3.5-5.1)
--- NOTE | 2021-08-04 13:32 | Orthopedic Progress Note ---
Date of Service August 04, 2021 Assessment & Plan (1) Neurogenic claudication due to lumbar spinal stenosis: Plan: At this time continue physical therapy monitor his LINDA operatively discharge home in the next few days. Admission and Anticipated Discharge Date Admission Date: August 03, 2021 Subjective Back pain controlled leg symptoms improved Physical Exam Physical Exam: Patient is in the chair at the bedside. Is good strength testing. Appears comfortable. Results & Data ([facility]) Vital Signs (Past 12 Hours) Vital Signs Temp Pulse Pulse Resp BP Pulse Ox 08/04/21 11:00 37.0 C 78 18 118/68 94 08/04/21 08:00 36.8 C 75 18 148/74 H 95 08/04/21 03:27 36.6 C 83 16 119/66 93 08/04/21 02:17 36.7 C 84 18 110/66 93
--- NOTE | 2021-08-04 15:13 | Pharmacy Report ---
Pharmacy Glycemic Short Note 2 - Date of Service August 04, 2021 - Glycemic Short BSG Results (Last 24 hours): 08/03/21 08/03/21 08/04/21 16:48 20:39 08:16 Glucose POC Glucose 164 H 162 H 104 H 08/04/21 08/04/21 08:29 11:53 Glucose 103 H POC Glucose 152 H OUTPATIENT ANTIDIABETIC REGIMEN: * Metformin 1 gm PO BID * Jardiance 25 mg daily * Actos 45 mg daily ASSESSMENT: * 71 y/o M admitted for Lumbar decompression/fusion surgery yesterday. Patient with history of Type 2 diabetes managed at home on oral Metformin, Jardiance and Actos. * Holding oral anti-diabetic meds while admitted and utilize basal and bolus insulin for inpatient glycemic control. * Yesterday, patient received basal Lantus 35 units at dinner. Patient had received IV Dex 12 mg in the OR. * Fasting BSG today was 104 mg/dl. IV Dex 6 mg QAM ongoing. * Reduced dose of basal Lantus (12 units) ordered this AM since 35 units of basal yesterday still in effect. * Novolog parameters based on stress of 3 continued. PLAN FOR INPATIENT GLYCEMIC CONTROL: * Hold outpatient oral diabetes medications * Basal insulin * Lantus 12 units SQ x1 today AM, re-assess tomorrow * Bolus insulin * NovoLog per scale ACHS or Q6hrs while NPO * Goal Range: Low 110 mg/dL - High 140 mg/dL * Correction Factor: 15 mg/dL/unit * Nutritional / Prandial insulin per carb ratio of 1 unit per 5 grams CHO co nsumed
[2021-08-04] MEDS: amLODIPine BESYLATE 5 MG TAB PO SCH (21:01)
[2021-08-04] MEDS: ASPIRIN 81 MG ECTAB PO SCH (21:01)
[2021-08-04] MEDS: DOCUSATE SODIUM/SENNA 50/8.6MG TAB PO SCH (21:01)
[2021-08-04] MEDS: ATORVASTATIN 40 MG TAB PO SCH (21:01)
[2021-08-04] MEDS: VENLAFAXINE HCL XR 150 MG CAPXR PO SCH (21:02)
[2021-08-04] MEDS: DOXAZosin MESYLATE TAB 2 MG TAB PO SCH (21:02)
[2021-08-04] MEDS: BISOPROLOL FUMARATE 5 MG TAB PO SCH (21:04)
--- NOTE | 2021-08-04 23:51 | Hospitalist Progress Note ---
Date of Service August 04, 2021 Assessment & Plan (1) Neurogenic claudication due to lumbar spinal stenosis: (2) Spinal stenosis: Plan: -S/P day #1 Lumbar decompression performed by dr. Cash - No post op complication - Continue pain controlled - Incentive spirometry - Continue monitor H/H - PT/OT eval - Fall precaution (3) CAD (coronary artery disease): (4) Ascending aorta dilatation: (5) Hypertension: (6) Hyperlipidemia: Plan: - Continue on home medications including amlodipine 10 mg daily, atorvastatin 80 mg HS, bisoprolol fumarate 7.5 mg HS, isosorbide mononitrate 30 QAM - Holding plavix and asa for spinal surgery, resume when stable per Dr. Cash - Last echo 06/2021 showing mild septal hypertrophy, normal wall motion, mild diastolic dysfunction. AAA measuring 4.1 cm. - Hx of stent x 4 total, s/p bare metal stent placement on 05/14/21 -Denies any current chest pain or shortness of breath (7) Polycythemia: Plan: - Phlebotomy as needed, last was over a year ago, follow with hematology last seen [address] Hernandez (8) Rheumatoid arthritis: Plan: - cont gabapentin , takes 1200 mg TID - oxycodone/acetaminophen 7.5 mg - 325 mg tabs TID, uses routinely, last bowel movement was yesterday - Continue methylprednisolone 4 mg QAM, has been on continue steroids for over 1 year-would attempt to wean off of this in the setting of possibly developing avascular necrosis (9) Diabetes mellitus, type 2: Plan: - Hold pioglitazone and jardiance - ISS with matthew saenz - Glycemic pharmacy consulted - Last A1C = 7.9 on 07/20/21 (10) Sleep apnea: Plan: - Cont cpap HS DVT ppx: - teds, scds CODE: Full Dispo: From home, likely to remain in the hospital x 1-2 days. Admission and Anticipated Discharge Date Admission Date: August 03, 2021 Subjective Patient was seen and examined for postop follow-up Lying in bed with no acute distress Patient states pain is under control Denies any chest pain, palpitation, dizziness and SOB Review of Systems Review of Systems: All systems reviewed & are unremarkable except as noted in Subjective Physical Exam Physical Exam: General- No acute distress Head- atraumatic Eyes- PERRL, EOMI, ENT- oropharynx clear Neck- supple, no JVD Lungs- clear to auscultation Heart- regular rhythm; no murmur Abdomen- normal bowel sounds, soft, nontender Extremities- no calf tenderness Neuro- alert, oriented x 3; PERRL, EOMI; no facial palsy; no dysarthria Skin- warm & dry Results & Data Results & Data ([facility]) Vital Signs (Past 12 Hours) Vital Signs Temp Pulse Resp BP Pulse Ox 08/04/21 21:05 36.8 C 77 18 136/74 92 08/04/21 15:10 36.9 C 78 17 127/71 93
[2021-08-05] MEDS: CHOLECALCIFEROL 1,000 UNITS 25 MCG TAB PO SCH (08:08)
[2021-08-05] MEDS: dexAMETHasone 6 MG in SYRINGE 0 ML IV SCH (08:08)
[2021-08-05] MEDS: ISOSORBIDE MONO EXTENDED REL 30 MG TABCR PO SCH (08:08)
[2021-08-05] MEDS: PANTOprazole 40 MG TAB PO SCH (08:08)
[2021-08-05] MEDS: GABAPENTIN 600 MG TAB PO SCH ×3 (08:09→20:55)
[2021-08-05] MEDS: oxyCODONE HCL IR 5 MG TAB (IMMEDIATE RELEASE) PO PRN ×3 (08:12→20:57)
--- NOTE | 2021-08-05 08:13 | Orthopedic Progress Note ---
Date of Service August 05, 2021 Assessment & Plan (1) Neurogenic claudication due to lumbar spinal stenosis: Plan: At this time we will continue physical therapy monitor his LINDA output anticipate discharge home tomorrow. Admission and Anticipated Discharge Date Admission Date: August 03, 2021 Subjective Back pain controlled leg pain improved Physical Exam Physical Exam: Patient is currently in bed. Is good strength testing. Appears comfortable. Results & Data ([facility]) Vital Signs (Past 12 Hours) Vital Signs Temp Pulse Resp BP Pulse Ox 08/05/21 08:06 36.5 C 08/05/21 07:22 70 20 115/69 94 08/04/21 21:05 36.8 C 77 18 136/74 92
--- NOTE | 2021-08-05 08:35 | Pharmacy Report ---
Pharmacy Glycemic Short Note 2 - Date of Service August 05, 2021 - Glycemic Short BSG Results (Last 24 hours): 08/04/21 08/04/21 08/04/21 08:29 11:53 16:37 Glucose 103 H POC Glucose 152 H 124 H 08/04/21 08/05/21 20:38 08:09 Glucose POC Glucose 106 H 96 OUTPATIENT ANTIDIABETIC REGIMEN: * Metformin 1 gm PO BID * Jardiance 25 mg daily * Actos 45 mg daily ASSESSMENT: 08/05/21: * Tej is POD # 2. He received a total of 42 units of SQ insulin yesterday * 12 units Lantus, 30 units Novolog * BSGs: 104, 152, 124, 106 mg/dL * Fasting BSG is at goal. Will continue current Lantus dose. * Post prandial BSGs were well controlled yesterday. Patient continues to receive dexamethasone IV daily. May need to slightly back of carb coverage if post prandial values trend down throughout the day. 08/04/21: * 71 y/o M admitted for Lumbar decompression/fusion surgery yesterday. Patient with history of Type 2 diabetes managed at home on oral Metformin, Jardiance and Actos. * Holding oral anti-diabetic meds while admitted and utilize basal and bolus insulin for inpatient glycemic control. * Yesterday, patient received basal Lantus 35 units at dinner. Patient had received IV Dex 12 mg in the OR. * Fasting BSG today was 104 mg/dl. IV Dex 6 mg QAM ongoing. * Reduced dose of basal Lantus (12 units) ordered this AM since 35 units of basal yesterday still in effect. * Novolog parameters based on stress of 3 continued. PLAN FOR INPATIENT GLYCEMIC CONTROL: * Hold outpatient oral diabetes medications * Basal insulin * Lantus 12 units SQ qAM - while on DXM IV * Bolus insulin * NovoLog per scale ACHS or Q6hrs while NPO * Goal Range: Low 110 mg/dL - High 140 mg/dL * Correction Factor: 15 mg/dL/unit * Nutritional / Prandial insulin per carb ratio of 1 unit per 5 grams CHO consumed
[2021-08-05] MEDS: INSULIN ASPART PER UNIT SC SCH ×4 (08:44→21:43)
[2021-08-05] MEDS: INSULIN GLARGINE SOLOSTAR 100 UNITS/ML 3 ML PEN SC SCH (08:45)
[2021-08-05 10:55] LABS: Hematocrit (blood only) 36.2 % (42-52); Hemoglobin 11.6 g/dL (14.0-18.0); Mean Corpuscular Hemoglobin 28.1 pg (25-34); Mean Corpuscular Volume 87.7 fL (80-100); Mean Platelet Volume 9.4 fL (7.4-10.4); Platelet Count 208 K/uL (130-400); RDW Coefficient of Variation 17.3 % (11.5-14.5); RDW Standard Deviation 54.1 fL (36.4-46.3); Red Blood Count 4.13 M/uL (4.7-6.1); White Blood Count 10.68 K/uL (4.8-10.8)
[2021-08-05] MEDS ORDERED: NURSING DECISION MEDICATION ONE (15:58)
[2021-08-05] MEDS ORDERED: COUGH DROP (SUGAR FREE) LOZ 24 LOZ/1 BOX BUCCAL PRN (16:02)
[2021-08-05] MEDS: amLODIPine BESYLATE 5 MG TAB PO SCH (20:51)
[2021-08-05] MEDS: ASPIRIN 81 MG ECTAB PO SCH (20:53)
[2021-08-05] MEDS: DOXAZosin MESYLATE TAB 2 MG TAB PO SCH (20:53)
[2021-08-05] MEDS: VENLAFAXINE HCL XR 150 MG CAPXR PO SCH (20:54)
[2021-08-05] MEDS: ATORVASTATIN 40 MG TAB PO SCH (20:54)
[2021-08-05] MEDS: DOCUSATE SODIUM/SENNA 50/8.6MG TAB PO SCH (20:54)
[2021-08-05] MEDS: BISOPROLOL FUMARATE 5 MG TAB PO SCH (20:55)
--- NOTE | 2021-08-05 22:15 | Hospitalist Progress Note ---
Date of Service August 05, 2021 Assessment & Plan (1) Neurogenic claudication due to lumbar spinal stenosis: (2) Spinal stenosis: Plan: -S/P day #2 Lumbar decompression performed by dr. Cash - No post op complication - Hgb stable at 11.6 - Continue pain controlled - Incentive spirometry - PT/OT eval - Fall precaution (3) CAD (coronary artery disease): (4) Ascending aorta dilatation: (5) Hypertension: (6) Hyperlipidemia: Plan: - Continue on home medications including amlodipine 10 mg daily, atorvastatin 80 mg HS, bisoprolol fumarate 7.5 mg HS, isosorbide mononitrate 30 QAM - Holding plavix and asa for spinal surgery, resume when stable per Dr. Cash - Last echo 06/2021 showing mild septal hypertrophy, normal wall motion, mild diastolic dysfunction. AAA measuring 4.1 cm. - Hx of stent x 4 total, s/p bare metal stent placement on 05/14/21 -Denies any current chest pain or shortness of breath (7) Polycythemia: Plan: - Phlebotomy as needed, last was over a year ago, follow with hematology last seen [address] Hernandez (8) Rheumatoid arthritis: Plan: - cont gabapentin , takes 1200 mg TID - oxycodone/acetaminophen 7.5 mg - 325 mg tabs TID, uses routinely, last bowel movement was yesterday - Continue methylprednisolone 4 mg QAM, has been on continue steroids for over 1 year-would attempt to wean off of this in the setting of possibly developing avascular necrosis (9) Diabetes mellitus, type 2: Plan: - Hold pioglitazone and jardiance - ISS with matthew crafts - Glycemic pharmacy consulted - Last A1C = 7.9 on 07/20/21 (10) Sleep apnea: Plan: - Cont cpap HS DVT ppx: - teds, scds CODE: Full Dispo: From home, likely to remain in the hospital x 1-2 days. Admission and Anticipated Discharge Date Admission Date: August 03, 2021 Subjective Patient was seen and examined for postop follow-up Lying in bed with no acute distress Patient states pain is under control Denies any chest pain, palpitation, dizziness and SOB Review of Systems Review of Systems: All systems reviewed & are unremarkable except as noted in Subjective Physical Exam Physical Exam: General- No acute distress Head- atraumatic Eyes- PERRL, EOMI, ENT- oropharynx clear Neck- supple, no JVD Lungs- clear to auscultation Heart- regular rhythm; no murmur Abdomen- normal bowel sounds, soft, nontender Extremities- no calf tenderness Neuro- alert, oriented x 3; PERRL, EOMI; no facial palsy; no dysarthria Skin- warm & dry Results & Data Results & Data ([facility]) Vital Signs (Past 12 Hours) Vital Signs Temp Pulse Pulse Resp BP Pulse Ox 08/05/21 20:49 62 130/69 08/05/21 15:41 36.7 C 64 20 119/68 94
[2021-08-06] MEDS: oxyCODONE HCL IR 5 MG TAB (IMMEDIATE RELEASE) PO PRN ×2 (07:13→11:13)
[2021-08-06] MEDS: INSULIN ASPART PER UNIT SC SCH (08:35)
[2021-08-06] MEDS: INSULIN GLARGINE SOLOSTAR 100 UNITS/ML 3 ML PEN SC SCH (08:36)
[2021-08-06] MEDS: CHOLECALCIFEROL 1,000 UNITS 25 MCG TAB PO SCH (08:43)
[2021-08-06] MEDS: dexAMETHasone 6 MG in SYRINGE 0 ML IV SCH (08:43)
[2021-08-06] MEDS: PANTOprazole 40 MG TAB PO SCH (08:43)
[2021-08-06] MEDS: ISOSORBIDE MONO EXTENDED REL 30 MG TABCR PO SCH (08:43)
[2021-08-06] MEDS: GABAPENTIN 600 MG TAB PO SCH (08:43)
--- NOTE | 2021-08-06 10:21 | Discharge Summary ---
Date of Service August 06, 2021 Admission HPI Per Admitting Provider This is a 71-year-old male who presents with chronic persistent back and leg pain. Failing course of nonoperative care is here for surgical invention. Principal Diagnosis Lumbar spinal stenosis with neurogenic claudication Discharge Data Allergies Allergy/AdvReac Type Severity Reaction Status Date / Time No Known Allergies Allergy Verified 08/03/21 09:06 Consultations 08/03/21 15:00 Consult Hospitalist Routine Procedures Performed Operation Date: 08/03/21 10:05 Actual Procedures p L2-L3 Decompression and Fusion, Spinal Cord Monitoring(Not Applicable) - Albaro Cash DO Ordered Studies 08/03/21 10:05 [place] lumbar spine 2-3V Routine Hospital Course (1) Neurogenic claudication due to lumbar spinal stenosis: Patient want lumbar decompression fusion tolerated so was taken to orthop edic for postoperative. Postop day #1 is up and ambulating progressed to postop day #2 postop day 3 pain was well controlled LINDA drain decreased appropriately. Excellent strength testing. Separately discharged home. Discharge orders instructions from the chart for further review. Total Time Total Time Spent Total Time Spent (In Minutes): 20 minutes Discharge Plan Discharge Items Patient Disposition: Home - Self-Care Reason For Visit: Spinal Stenosis, Lumbar Region with Neurogenic Cla Discharge Diagnosis: Lumbar spinal stenosis with neurogenic claudication Activity: As commented below Non-emergency contact: Primary Care Provider Call non-emergency contact if: you have any medication questions Follow-up/Referrals: José Miguel Lee DO [Primary Care Provider] - Diet: Regular Addtl Attending Provider Instructions: ACTIVITY RECOMMENDATIONS: SELF CARE INSTRUCTIONS AFTER THORACIC/LUMBAR FUSIONS 1. You may walk to your tolerance. It is good exercise for your legs and back. Expect some back and intermittent leg aches and pains. 2. You may perform "counter-top" level activities (make a sandwich, zane with a project, etc.). 3. No bending or lifting of more than 10 pounds or back twisting of any nature (roll like a log when turning in bed). 4. You may ride in a car for 20-30 minutes at a time. No driving until after your first visit with your doctor. 5. Frequent changes of position and restricting sitting to 30 minutes at a time will help limit the amount of back spasms and stiffness you may experience. 6. You may discontinue the use of ambulatory aids (cane, crutches, etc.) once your strength and confidence allow. 7. You may principal product manager the shower and let water strike your incision when you arrive home at least once daily. Do not take a tub bath, sit in a hot tub or go into a swimming pool until after your first recheck in the office. SPECIAL CARE INSTRUCTIONS: VERY IMPORTANT TO READ AND REVIEW A. Your surgical incision has been closed with a cosmetic suture under the skin that will dissolve in about 6 weeks. In 14 days, you can use a pair of clean scissors and cut the suture that is left outside of the skin at the ends of your incision. 1. The small skin tapes can be removed 7 days after surgery if they have not fallen off by that point. 2. You may keep the wound open to air as much as possible to promote healing after post-op day number 5 unless told otherwise by your doctor. 3. If you think the wound looks like it is becoming infected (redness or worsening drainage) and/or you are experiencing fever, chill or worsening back pain and muscle spasms, contact the office so that we may evaluate you as soon as possible. B. Complications are uncommon, but please contact us if you have any signs or symptoms of: 1. wound infection (fever higher than 102.5 degrees F, redness, separation of wound, drainage, or increasing pain from the incision) 2. blood clots in legs (pain, swelling, redness and warmth in legs) 3. urinary tract infection (fever higher than 102.5 degrees F, burning upon urination or increased frequency of urination) 4. nerve problems (inability to walk on your toes or heels, numbness, loss of bowel or bladder control) 5. any other symptoms that concern you C. Please call the office at if you have any concerns or questions about your operation or recovery. D. No smoking! Smoking drastically decreases the chance of a solid fusion. E. Do not take any anti-inflammatory medications (Indocin, Advil, Motrin, Aspirin, Naprosyn, etc.) as these may inhibit the chance of a solid fusion. Tylenol is okay to take for pain. MANAGING PAIN AFTER SPINAL SURGERY 1. Narcotic medication is intended for short-term use and will be provided for surgical pain. Surgical pain usually lasts for a period of 4-6 weeks. Narcotic medication includes Percocet, Vicodin, Darvocet, Tylenol #3 or Lortab. 2. Longer-term pain is more appropriately treated with non-narcotic medication such as Tylenol ES. 3. Muscle spasm is not appropriately treated with narcotics. Muscle relaxers such as Soma, Flexeril or Skelaxin can be used along with Tylenol ES. 4. Remember that we all live with some "aches and pains". This is not unusual or uncommon after an injury or as we get older. a. Back pain is expected and may include muscle spasms for 4 to 6 weeks after surgery. The pain should gradually improve. If the pain worsens for no apparent reason, please contact the office. b. Intermittent leg pain may also be experienced and should not be concerned about unless it worsens for no apparent reason. If so, please contact the office. 5. We will provide appropriate medication within the normal guidelines of their prescribed use. We will also be very cautious and aware of potential abuse and extended duration of patients' medication needs. a. Pain medications are for your comfort and to assist with sleep and rest so that the tissue can heal. They are not provided in order to return to normal activity and should not be used through the day. To do so or worsening pain at night can result from ongoing tissue damage and development of tolerance to the prescribed medicine. 6. Please allow 2-3 days to process refills. Prescriptions will not be mailed but must be picked up at the office. FOLLOW UP VISIT: Keep your scheduled follow-up appointment. Any questions, please call the office at . Pending Studies at Discharge: No Stand-Alone Forms: My [facility], Smoking Cessation Medications and DC Order Prescriptions: New tramadol 50 mg tablet 50 mg PO Q6H PRN (Reason: pain, moderate) Qty: 30 RF: 0 oxycodone 5 mg tablet 5 mg PO Q6H PRN (Reason: pain, severe) Qty: 30 RF: 0 Continued metformin 500 mg Tablet 1,000 mg PO BID RF: 0 atorvastatin 20 mg Tablet 80 mg PO HS RF: 0 isosorbide mononitrate 30 mg Tablet Extended Release 24 Hr 30 mg PO QAM RF: 0 clopidogrel 75 mg Tablet 75 mg PO HS RF: 0 aspirin [Helder Low Dose Aspirin] 81 mg Tablet,Delayed Release (Dr/Ec) 81 mg PO HS RF: 0 bisoprolol fumarate 5 mg Tablet 7.5 mg PO HS RF: 0 cholecalciferol (vitamin D3) [Vitamin D3] 25 mcg (1,000 unit) Tablet 25 mcg PO QAM RF: 0 venlafaxine 150 mg Tablet Extended Release 24hr 150 mg PO HS RF: 0 omeprazole magnesium [Prilosec OTC] 20 mg Tablet,Delayed Release (Dr/Ec) 20 mg PO QAM RF: 0 pioglitazone [Actos] 45 mg Tablet 45 mg PO HS RF: 0 amlodipine 10 mg Tablet 10 mg PO HS RF: 0 gabapentin 600 mg tablet 1,200 mg PO TID RF: 0 methylprednisolone 4 mg tablet 4 mg PO QAM RF: 0 Jardiance 25 mg tablet 25 mg PO QAM RF: 0 oxycodone-acetaminophen 7.5-325 mg Tablet 1 tab PO TID RF: 0 doxazosin 2 mg Tablet 2 mg PO HS RF: 0 Discharge Orders: Discharge Order (Routine); Ordered 08/06/21 Ordered By: Albaro Cash Admission Data Admit Date/Time: 08/03/21 12:36 Attending Provider: Albaro Cash Admit Provider: Albaro Cash Primary Care Provider: José Miguel Lee Other Providers: Tess Dunbar ; Mavis Leon
--- NOTE | 2021-08-06 12:43 | Hospitalist Progress Note ---
Date of Service August 06, 2021 Assessment & Plan (1) Neurogenic claudication due to lumbar spinal stenosis: (2) Spinal stenosis: Plan: -S/P day #3 Lumbar decompression performed by dr. Cash - No post op complication - Hgb stable at 11.6 - Continue pain controlled - Incentive spirometry - PT/OT eval - Fall precaution (3) CAD (coronary artery disease): (4) Ascending aorta dilatation: (5) Hypertension: (6) Hyperlipidemia: Plan: - Continue on home medications including amlodipine 10 mg daily, atorvastatin 80 mg HS, bisoprolol fumarate 7.5 mg HS, isosorbide mononitrate 30 QAM - Holding plavix and asa for spinal surgery, resume when stable per Dr. Cash - Last echo 06/2021 showing mild septal hypertrophy, normal wall motion, mild diastolic dysfunction. AAA measuring 4.1 cm. - Hx of stent x 4 total, s/p bare metal stent placement on 05/14/21 -Denies any current chest pain or shortness of breath (7) Polycythemia: Plan: - Phlebotomy as needed, last was over a year ago, follow with hematology last seen [address] Hernandez (8) Rheumatoid arthritis: Plan: - cont gabapentin , takes 1200 mg TID - oxycodone/acetaminophen 7.5 mg - 325 mg tabs TID, uses routinely, last bowel movement was yesterday - Continue methylprednisolone 4 mg QAM, has been on continue steroids for over 1 year-would attempt to wean off of this in the setting of possibly developing avascular necrosis (9) Diabetes mellitus, type 2: Plan: - Hold pioglitazone and jardiance - ISS with [facility] - Glycemic pharmacy consulted - Last A1C = 7.9 on 07/20/21 (10) Sleep apnea: Plan: - Cont cpap HS DVT ppx: - teds, scds CODE: Full Dispo: From home, likely to remain in the hospital x 1-2 days. Admission and Anticipated Discharge Date Admission Date: August 03, 2021 Subjective Patient was seen and examined for postop follow-up Standing in the home with no acute distress waiting to be discharge Patient states pain is under control Denies any chest pain, palpitation, dizziness and SOB Review of Systems Review of Systems: All systems reviewed & are unremarkable except as noted in Subjective Physical Exam Physical Exam: General- No acute distress Head- atraumatic Eyes- PERRL, EOMI, ENT- oropharynx clear Neck- supple, no JVD Lungs- clear to auscultation Heart- regular rhythm; no murmur Abdomen- normal bowel sounds, soft, nontender Extremities- no calf tenderness Neuro- alert, oriented x 3; PERRL, EOMI; no facial palsy; no dysarthria Skin- warm & dry Results & Data Results & Data ([facility]) Vital Signs (Past 12 Hours) Vital Signs Temp Pulse Pulse Resp BP Pulse Ox 08/06/21 10:25 36.8 C 62 65 18 144/74 H 94 08/06/21 07:15 36.8 C 65 18 144/74 H 94
== END 2021-08-06 12:52 | disposition home or self-care (01) | DRG 455 ==
LOC: ASU 08:29 → 3E 12:36